=== PATIENT | female | born 1960 | race African-American/Black ===

== ENCOUNTER 2016-08-31 22:40 | Observation (INO) | payer SELFPAY ==
[~2016-08-31 22:40] MED LIST: GLUCTES27 XX; GUAI600 PO; LISI-586 PO; METF850 PO; METO25 PO; ROBA500T PO
[2016-08-31 22:47] VITALS: BP 209/93; PULSE 91; RESP 18; TEMP 98; O2SAT 96
[2016-08-31 23:00] VITALS: PULSE 88; RESP 16; O2SAT 98
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
[2016-08-31 23:31] LABS: BASOPHIL # 0.1 TH/MM3 (0-0.2); BASOPHIL % 0.8 % (0.0-2.0); EOSINOPHIL % 0.5 % (0.0-4.0); HEMATOCRIT 41.8 % (35.0-46.0); HEMO FLAGS DIFF FINAL; LYMPHOCYTE # 2.5 TH/MM3 (1.0-4.8); MEAN CELL VOLUME 78.6 FL (80.0-100.0); MEAN CORPUSCULAR HEMOGLOBIN 26.2 PG (27.0-34.0); MEAN CORPUSCULAR HGB CONC 33.4 % (32.0-36.0); MONO % 8.4 % (0.0-8.0); NEUT % 55.3 % (16.0-70.0); PLATELET COUNT 273 TH/MM3 (150-450); RED BLOOD COUNT 5.32 MIL/MM3 (4.00-5.30); RED CELL DISTRIBUTION WIDTH 15.4 % (11.6-17.2); WHITE BLOOD COUNT 7.2 TH/MM3 (4.0-11.0)
[2016-08-31 23:34] LABS: BACTERIA, URINE RARE /hpf; BLOOD, URINE NEG (NEG); COMMENT (UR) CULTURE INDICATED; CULTURE IF INDICATED CULTURE INDICATED; GLUCOSE,URINE NEG (NEG); KETONE, URINE NEG (NEG); MUCUS URINE FEW /lpf (OCC); NITRITE,URINE NEG (NEG); PH, URINE 5.5 (5.0-8.5); RENAL EPITHELIAL CELLS <1 /hpf; SQUAMOUS EPITHELIAL CELL URINE 1 /hpf (0-5); URINE COLOR YELLOW (YELLW/STRAW)
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
[2016-08-31] MEDS ORDERED: SODIUM CHLOR 0.9% 1000 ML INJ 1,000 ML IV ONE (23:45)
[2016-08-31] MEDS ORDERED: ONDANSETRON HCL 4 MG/2 ML VIAL IV ONE (23:45)
[2016-08-31] MEDS ORDERED: MUPIROCIN 2% OINT 22 GM TUBE TOPICAL ONE (23:45)
[2016-08-31] MEDS ORDERED: MORPHINE SULFATE 4 MG/ML INJ IV PUSH ONE (23:45)
[2016-08-31 23:47] LABS: PROTHROMBIN TIME - PATIENT 11.2 SEC (9.8-11.6)
[2016-08-31 23:59] LABS: ALT (GPT) 16 U/L (10-53); ANION GAP 10 MEQ/L (5-15); AST (GOT) 14 U/L (15-37); BICARBONATE 25.3 MEQ/L (21.0-32.0); BLOOD UREA NITROGEN 14 MG/DL (7-18); CHLORIDE 108 MEQ/L (98-107); GLOMERULAR FILTRATION RATE 86 ML/MIN (>89); POTASSIUM 3.4 MEQ/L (3.5-5.1); SODIUM (NA) 143 MEQ/L (136-145)
[2016-09-01] VITALS (9 sets, daily range): BP systolic 150–197; BP diastolic 70–86; PULSE 61–84; RESP 16–20; TEMP 97.6–98.3; O2SAT 95–100
[2016-09-01 00:03] LABS: ALKALINE PHOSPHATASE 111 U/L (45-117); TOTAL BILIRUBIN ADULT 0.2 MG/DL (0.2-1.0)
[2016-09-01 00:05] LABS: CREATINE KINASE 100 U/L (26-192)
[2016-09-01] MEDS ORDERED: AZITHROMYCIN INJ 500 MG in SODIUM CHLOR 0.9% 250 ML INJ 250 ML IV ONE (01:15)
[2016-09-01] MEDS ORDERED: cefTRIAXone INJ 1,000 MG in SODIUM CHLORIDE 0.9% INJ 100 ML IV ONE (01:15)
[2016-09-01 01:45] LABS: BLOOD GAS BASE EXCESS -0.2 mmol/L (-2-2); BLOOD GAS CARBOXYHEMOGLOBIN 4.4 % (0-4); BLOOD GAS HCO3 24 mmol/L (22-26); BLOOD GAS O2 HGB SATURATION 89 % (90-100); BLOOD GAS PCO2 38 mmHg (38-42); BLOOD GAS PO2 70 mmHG (61-120); BLOOD GAS TOTAL HGB 13.7 G/DL (12.0-16.0); TEMP CORR TO 98.6
[2016-09-01 01:46] LABS: CRITICAL VALUE YES; DRAW SITE LT RADIAL; FIO2 21 %; NUMBER OF ARTERIAL PUNCTURES 2; OXYGEN DEVICE ROOM AIR; STAT YES; ULNAR PULSE PRESENT
[2016-09-01] MEDS ORDERED: SODIUM CHLORIDE 0.9% FLUSH 5 ML FLUSH FLUSH PRN (02:30)
[2016-09-01] MEDS ORDERED: RESP: ALBUTEROL 2.5 MG/IPRATROPIUM 0.5 MG NEB (PRN) NEB (02:30)
[2016-09-01] MEDS ORDERED: NALOXONE HCL 0.4 MG/ML AMP IV PRN (02:30)
[2016-09-01] MEDS ORDERED: DEXTROSE 50% IN WATER 50 ML VIAL(D50) IV PUSH PRN (02:30)
[2016-09-01] MEDS ORDERED: GLUCAGON 1 MG/ML VIAL OTHER PRN (02:30)
[2016-09-01] MEDS ORDERED: METF850T PO (04:45)
[2016-09-01] MEDS ORDERED: CYCL7.5T33 PO (04:45)
[2016-09-01] MEDS ORDERED: METO25TA3 PO (04:45)
[2016-09-01] MEDS: LEVOFLOXACIN 750 MG PREMIX INJ 150 ML IV SCH (05:03)
[2016-09-01] MEDS ORDERED: INSULIN ASPART SUPPLEMENTAL SCALE SQ SCH (07:00)
[2016-09-01] MEDS ORDERED: ACETAMINOPHEN/HYDROcodone 325 MG/7.5 MG TAB PO PRN (08:00)
[2016-09-01] MEDS ORDERED: BISACODYL 10 MG SUPP PR PRN (08:00)
[2016-09-01] MEDS ORDERED: cloNIDine HCL 0.1 MG TAB PO PRN (08:00)
[2016-09-01] MEDS ORDERED: MORPHINE SULFATE 4 MG/ML INJ IV PRN (08:00)
[2016-09-01] MEDS: RESP: ALBUTEROL 2.5 MG/IPRATROPIUM 0.5 MG NEB (SCH) NEB ×4 (08:00→20:18)
[2016-09-01] MEDS ORDERED: ONDANSETRON HCL 4 MG/2 ML VIAL IVP PRN (08:00)
[2016-09-01] MEDS ORDERED: RESP: ALBUTEROL 0.63 MG/3 ML NEB (PRN) NEB (08:00)
[2016-09-01] MEDS ORDERED: SENNOSIDES 8.6 MG TAB PO PRN (08:00)
[2016-09-01] MEDS ORDERED: ACETAMINOPHEN/HYDROcodone 325 MG/5 MG TAB PO PRN (08:00)
[2016-09-01] MEDS ORDERED: ENALAPRILAT 1.25 MG/ML VIAL IV PRN (08:00)
[2016-09-01] MEDS ORDERED: ACETAMINOPHEN 325 MG TAB PO PRN ×2 (08:00)
[2016-09-01] MEDS ORDERED: MAGNESIUM HYDROXIDE SUSP 30 ML CUP PO PRN (08:00)
[2016-09-01] MEDS: METOPROLOL TARTRATE 25 MG TAB PO SCH ×2 (08:36→22:52)
[2016-09-01] MEDS: SODIUM CHLORIDE 0.9% FLUSH 5 ML FLUSH FLUSH SCH ×2 (08:36→22:52)
[2016-09-01] MEDS ORDERED: POTASSIUM CHLORIDE 20 MEQ CONTROLLED RELEASE TAB PO ONE (08:45)
[2016-09-01] MEDS ORDERED: PILL SPLITTER OTHER PRN (09:00)
[2016-09-01] MEDS ORDERED: SILVER SULFADIAZINE 1% CR 400 GM JAR TOPICAL SCH (09:00)
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
[2016-09-01] MEDS ORDERED: HYDR-3580 PO (10:18)
[2016-09-01] MEDS: CYCLOBENZAPRINE HCL 10 MG TAB PO SCH ×3 (10:26→18:24)
[2016-09-01] MEDS: DOCUSATE SODIUM 100 MG CAP PO SCH ×2 (10:26→21:00)
[2016-09-01] MEDS: metFORMIN HCL 850 MG TAB PO SCH ×2 (10:27→18:24)
[2016-09-01] MEDS: INSULIN ASPART SUPPLEMENTAL SCALE SQ SCH ×3 (11:00→21:00)
[2016-09-01] MEDS: NEOMYCIN/POLYMYXIN/BACITRACIN OINT 15 GM TUBE TOPICAL SCH ×2 (11:00→22:54)
[2016-09-01] MEDS ORDERED: TETANUS/DIPHTHERIA TOXOID ADULT 0.5 ML VIAL IM ONE (12:30)
[2016-09-02] MEDS: LEVOFLOXACIN 750 MG PREMIX INJ 150 ML IV SCH (03:26)
[2016-09-02 04:09] VITALS: BP_SYST 170; BP_SYST 177; BP_DIAS 76; BP_DIAS 83; PULSE 63; RESP 20; TEMP 97.6; O2SAT 98
[2016-09-02 05:35] LABS: AUTOMATED NEUTROPHIL # 2.4 TH/MM3 (1.8-7.7); BASOPHIL % 0.4 % (0.0-2.0); EOSINOPHIL % 0.9 % (0.0-4.0); HEMATOCRIT 40.3 % (35.0-46.0); HEMO FLAGS DIFF FINAL; LYMPH % 45.9 % (9.0-44.0); LYMPHOCYTE # 2.5 TH/MM3 (1.0-4.8); MEAN CELL VOLUME 78.3 FL (80.0-100.0); MEAN CORPUSCULAR HGB CONC 33.2 % (32.0-36.0); MONO % 9.5 % (0.0-8.0); NEUT % 43.3 % (16.0-70.0); PLATELET COUNT 249 TH/MM3 (150-450); RED BLOOD COUNT 5.15 MIL/MM3 (4.00-5.30); RED CELL DISTRIBUTION WIDTH 15.5 % (11.6-17.2); WHITE BLOOD COUNT 5.5 TH/MM3 (4.0-11.0)
[2016-09-02 05:51] LABS: BICARBONATE 25.2 MEQ/L (21.0-32.0); POTASSIUM 3.4 MEQ/L (3.5-5.1)
[2016-09-02] MEDS: INSULIN ASPART SUPPLEMENTAL SCALE SQ SCH ×4 (07:00→21:00)
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
[2016-09-02] MEDS: RESP: ALBUTEROL 2.5 MG/IPRATROPIUM 0.5 MG NEB (SCH) NEB ×4 (08:18→20:33)
[2016-09-02 08:19] VITALS: O2SAT 98
[2016-09-02 08:32] VITALS: BP 150/70; PULSE 70; RESP 18; TEMP 97.8; O2SAT 95
[2016-09-02] MEDS ORDERED: LISINOPRIL 5 MG TAB PO SCH (09:00)
[2016-09-02] MEDS: DOCUSATE SODIUM 100 MG CAP PO SCH ×2 (09:00→21:08)
[2016-09-02] MEDS: SODIUM CHLORIDE 0.9% FLUSH 5 ML FLUSH FLUSH SCH ×2 (09:08→21:08)
[2016-09-02] MEDS: CYCLOBENZAPRINE HCL 10 MG TAB PO SCH ×3 (09:08→17:41)
[2016-09-02] MEDS: METOPROLOL TARTRATE 25 MG TAB PO SCH ×2 (09:08→21:08)
[2016-09-02] MEDS: metFORMIN HCL 850 MG TAB PO SCH ×2 (09:08→17:41)
[2016-09-02] MEDS: amLODIPine BESYLATE 5 MG TAB PO SCH (09:08)
[2016-09-02] MEDS ORDERED: POTASSIUM CHLORIDE 10 MEQ CONTROLLED RELEASE TAB PO ONE (09:15)
[2016-09-02] MEDS ORDERED: AMLO5 PO (10:16)
[2016-09-02] MEDS ORDERED: LEVA750T PO (10:16)
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
[2016-09-02] MEDS: NEOMYCIN/POLYMYXIN/BACITRACIN OINT 15 GM TUBE TOPICAL SCH ×2 (11:00→23:00)
[2016-09-02 13:42] VITALS: BP 149/66; PULSE 66; RESP 18; O2SAT 95
[2016-09-02 17:16] VITALS: BP 148/60; PULSE 72; RESP 18; O2SAT 95
[2016-09-02 20:28] VITALS: BP 156/68; PULSE 72; RESP 18; TEMP 97.8; O2SAT 98
[2016-09-03 00:43] VITALS: BP 157/70; PULSE 68; RESP 18; TEMP 98.4; O2SAT 98
[2016-09-03] MEDS: LEVOFLOXACIN 750 MG PREMIX INJ 150 ML IV SCH (03:02)
[2016-09-03] MEDS: INSULIN ASPART SUPPLEMENTAL SCALE SQ SCH ×2 (07:00→11:00)
[2016-09-03 07:19] VITALS: O2SAT 97
[2016-09-03] MEDS: RESP: ALBUTEROL 2.5 MG/IPRATROPIUM 0.5 MG NEB (SCH) NEB (07:19)
[2016-09-03] MEDS: metFORMIN HCL 850 MG TAB PO SCH (08:52)
[2016-09-03] MEDS: SODIUM CHLORIDE 0.9% FLUSH 5 ML FLUSH FLUSH SCH (08:52)
[2016-09-03] MEDS: CYCLOBENZAPRINE HCL 10 MG TAB PO SCH (08:52)
[2016-09-03] MEDS: METOPROLOL TARTRATE 25 MG TAB PO SCH (08:52)
[2016-09-03] MEDS: amLODIPine BESYLATE 5 MG TAB PO SCH (08:52)
[2016-09-03] MEDS: DOCUSATE SODIUM 100 MG CAP PO SCH (08:52)
[2016-09-03 08:56] VITALS: BP 186/77; PULSE 72; RESP 20; TEMP 98.3; O2SAT 96
[2016-09-03 10:40] VITALS: BP 140/62; PULSE 71; RESP 20; TEMP 97.2; O2SAT 96
[2016-09-03] MEDS: NEOMYCIN/POLYMYXIN/BACITRACIN OINT 15 GM TUBE TOPICAL SCH (10:45)
[2016-09-03 11:26] VITALS: BP 167/78; PULSE 69; RESP 18; O2SAT 95
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
[2016-09-03] MEDS ORDERED: NEOS.9T TOPICAL (11:31)
[2016-09-03] MEDS ORDERED: AMLO10 PO (11:31)
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
[2016-09-03 12:18] VITALS: BP 167/78
== END 2016-09-03 12:58 | disposition home or self-care (01) ==
LOC: NEPC 22:40 → NEDA 09-01 01:58 → NEDH 09-01 06:30 → NEPHCDU 09-01 15:31
PROVIDERS: ADMIT Internal Medicine; ATTEND Internal Medicine
DX: T23.242A Burn of second degree of multiple left fingers (nail), including thumb, initial encounter (principal); J18.9 Pneumonia, unspecified organism; I10 Essential (primary) hypertension; N39.0 Urinary tract infection, site not specified; I16.0 Hypertensive urgency; E11.9 Type 2 diabetes mellitus without complications; Z79.84 Long term (current) use of oral hypoglycemic drugs; Z88.8 Allergy status to other drugs, medicaments and biological substances; X10.2XXA Contact with fats and cooking oils, initial encounter
CPT/HCPCS: 36600; 71010; 80048; 80053; 81001; 82550; 82805; 82948; 83735; 83880; 84484; 85025; 85610; 85730; 86403; 87040; 87077; 87086; 87186; 87205; 90714; 94640; 96361; 96365; 96375; 99285; G0378; J0456; J0696; J1956; J2270; J2405; J7030; J7050

== ENCOUNTER 2017-11-09 17:36 | Emergency (ER) | payer MEDICAID ==
[~2017-11-09] VITALS: Ht 170.2 cm; Wt 90.9 kg
[~2017-11-09 17:36] MED LIST changes: +AMLO10 PO; +AMLO5 PO; +CYCL7.5T33 PO; -GLUCTES27 XX; -GUAI600 PO; +HYDR-3580 PO; +LEVA750T PO; -LISI-586 PO; -METF850 PO; +METF850T PO; -METO25 PO; +METO25TA3 PO; +NEOS.9T TOPICAL; -ROBA500T PO
[2017-11-09 17:38] VITALS: BP 177/86; PULSE 101; RESP 18; TEMP 99.1; O2SAT 99
[2017-11-09] MEDS ORDERED: SODIUM CHLORIDE 0.9% FLUSH 10 ML FLUSH IVF PRN (18:00)
[2017-11-09] MEDS ORDERED: METH500T3 PO (18:05)
--- NOTE | 2017-11-09 18:36 | PD ---
HPI Chief Complaint: GI Complaint Time Seen by Provider: 17:48 Travel History International Travel<30 days: No Contact w/Intl Traveler<30days: No Traveled to known affect area: No History of Present Illness HPI 57-year-old female with PMH of HTN, DM, chronic pain presents to the ED for evaluation 24 hour history of palpitations, pain in the left arm radiating to the chest, nausea. Patient denies headache, dizziness, chest pain, shortness of breath, abdominal pain, vomiting. She does endorse one episode of nonbloody loose stools. Patient states that the symptoms onset at breakfast yesterday after taking amlodipine. She states that she was prescribed the medicine 2 days ago. She states that she had a dose in the office which created the same symptoms in her but they resolved over the course of the day. Patient is a current smoker. She states that she does not take any antihypertensive medications today. PFSH Past Medical History Arthritis: Yes Anxiety: No Depression: No Heart Rhythm Problems: No Cancer: No Cardiac Catheterization: No Cardiovascular Problems: No High Cholesterol: No Congestive Heart Failure: No Diabetes: Yes Patient Takes Glucophage: Yes Endocrine: No Genitourinary: No Headaches: Yes Hypertension: Yes Immune Disorder: No Musculoskeletal: No Neurologic: No Psychiatric: No Reproductive: No Respiratory: No Myocardial Infarction: No Sickle Cell Disease: No ?: Not Menopausal: Yes : 3 Para: 3 Past Surgical History Abdominal Surgery: Yes (hysterectomy) AICD: No Arteriovenous Shunt: No Cardiac Surgery: No Coronary Artery Bypass Graft: No Ear Surgery: No Endocrine Surgery: No Genitourinary Surgery: No Gynecologic Surgery: Yes Hysterectomy: Yes (FULL) Insulin Pump: No Joint Replacement: No Oral Surgery: No Pacemaker: No Thoracic Surgery: No Other Surgery: Yes Social History Alcohol Use: No Tobacco Use: Yes (1 PACK/ 3 DAYS) Substance Use: No Allergies-Medications (Allergen,Severity, Reaction): Coded Allergies: lisinopril (Unverified Allergy, Severe, angioedema, 11/09/17) sodium hypochlorite solution (Unverified Allergy, Intermediate, Rash, 11/09) sulfamethoxazole (Unverified Allergy, Unknown, Swelling, 11/09/17) tongue swelling trimethoprim (Unverified Allergy, Unknown, Swelling, 11/09/17) tongue swelling Reported Meds & Prescriptions Reported Meds & Active Scripts Active Norvasc (Amlodipine Besylate) 5 Mg Tab 5 Mg PO DAILY Reported Methocarbamol 500 Mg Tab 1,000 Mg PO QID Metformin (Metformin HCl) 850 Mg Tab 850 Mg PO BIDPC With meals Review of Systems Except as stated in HPI: all other systems reviewed are Neg Physical Exam Narrative GENERAL: Well-nourished, well-developed -[place] female no acute distress. SKIN: Focused skin assessment warm/dry. HEAD: Normocephalic. EYES: No scleral icterus. No injection or drainage. NECK: Supple, trachea midline. No JVD or lymphadenopathy. CARDIOVASCULAR: Regular rate and rhythm without murmurs, gallops, or rubs. RESPIRATORY: Breath sounds clear and equal bilaterally. No accessory muscle use. GASTROINTESTINAL: Abdomen soft, non-tender, nondistended. MUSCULOSKELETAL: No cyanosis, or edema. BACK: Nontender without obvious deformity. No CVA tenderness. Data Data Last Documented VS Vital Signs Date Time Temp Pulse Resp B/P (MAP) Pulse Ox O2 Delivery O2 Flow Rate FiO2 11/09/17 17:38 99.1 101 18 177/86 (116) 99 Orders Orders Electrocardiogram (11/09/17 17:55) Ckmb (Isoenzyme) Profile (11/09/17 17:55) Complete Blood Count With Diff (11/09/17 17:55) Comprehensive Metabolic Panel (11/09/17 17:55) Magnesium (Mg) (11/09/17 17:55) Prothrombin Time / Inr (Pt) (11/09/17 17:55) Act Partial Throm Time (Ptt) (11/09/17 17:55) Troponin I (11/09/17 17:55) Ecg Monitoring (11/09/17 17:55) Bilateral Bp Monitoring (11/09/17 17:55) Iv Access Insert/Monitor (11/09/17 17:55) Oximetry (11/09/17 17:55) Sodium Chloride 0.9% Flush (Ns Flush) (11/09/17 18:00) Chest, Pa & Lat (11/09/17 17:55) Sodium Chlor 0.9% 1000 Ml Inj (Ns 1000 M (11/09/17 19:30) Potassium Chloride (Kcl) (11/09/17 19:30) Ed Discharge Order (11/09/17 19:38) Labs Laboratory Tests Test 11/09/17 18:05 White Blood Count 7.9 TH/MM3 Red Blood Count 6.10 MIL/MM3 Hemoglobin 15.6 GM/DL Hematocrit 48.2 % Mean Corpuscular Volume 78.9 FL Mean Corpuscular Hemoglobin 25.6 PG Mean Corpuscular Hemoglobin Concent 32.4 % Red Cell Distribution Width 15.9 % Platelet Count 293 TH/MM3 Mean Platelet Volume 8.1 FL Neutrophils (%) (Auto) 53.6 % Lymphocytes (%) (Auto) 38.3 % Monocytes (%) (Auto) 7.2 % Eosinophils (%) (Auto) 0.4 % Basophils (%) (Auto) 0.5 % Neutrophils # (Auto) 4.2 TH/MM3 Lymphocytes # (Auto) 3.0 TH/MM3 Monocytes # (Auto) 0.6 TH/MM3 Eosinophils # (Auto) 0.0 TH/MM3 Basophils # (Auto) 0.0 TH/MM3 CBC Comment AUTO DIFF Differential Comment AUTO DIFF CONFIRMED Prothrombin Time 10.3 SEC Prothromb Time International Ratio 1.0 RATIO Activated Partial Thromboplast Time 22.0 SEC Blood Urea Nitrogen 13 MG/DL Creatinine 0.90 MG/DL Random Glucose 84 MG/DL Total Protein 8.7 GM/DL Albumin 3.7 GM/DL Calcium Level 9.3 MG/DL Magnesium Level 2.1 MG/DL Alkaline Phosphatase 133 U/L Aspartate Amino Transf (AST/SGOT) 21 U/L Alanine Aminotransferase (ALT/SGPT) 24 U/L Total Bilirubin 0.3 MG/DL Sodium Level 143 MEQ/L Potassium Level 3.2 MEQ/L Chloride Level 106 MEQ/L Carbon Dioxide Level 29.5 MEQ/L Anion Gap 8 MEQ/L Estimat Glomerular Filtration Rate 78 ML/MIN Total Creatine Kinase 89 U/L Troponin I LESS THAN 0.02 NG/ML MDM Medical Decision Making Medical Screen Exam Complete: Yes Emergency Medical Condition: Yes Differential Diagnosis Medication side effect versus dysrhythmia versus metabolic derangement versus rhabdomyolysis versus dehydration versus other Narrative Course 57-year-old female with PMH of HTN, DM, chronic pain presents to the ED for evaluation 24 hour history of palpitations, pain in the left arm radiating to the chest, nausea. Symptoms onset at breakfast yesterday after taking amlodipine. She states that she was prescribed the medicine 2 days ago. She states that she had a dose in the office which created the same symptoms in her but they resolved over the course of the day. Patient is a current smoker. She states that she does not take any antihypertensive medications today. Temp 99.1. Pulse 101. BP 177/86 on presentation. Physical exam is unremarkable. EKG rate 79, sinus rhythm. There are interval 182, QRS 86, QTc 4 2 ms. Normal axis. No acute ST changes. Unchanged from previous 01/29/15. Reviewed by Dr. Pantoja. Lab work ordered and pending. Patient signed out to CORINNA Torres at end of shift. Please see her note for disposition. Yahaira Loyola November 09, 2017 18:36
[2017-11-09 18:46] LABS: AUTOMATED NEUTROPHIL # 4.2 TH/MM3 (1.8-7.7); BASOPHIL % 0.5 % (0.0-2.0); EOSINOPHIL % 0.4 % (0.0-4.0); HEMATOCRIT 48.2 % (35.0-46.0); HEMOGLOBIN 15.6 GM/DL (11.6-15.3); LYMPH % 38.3 % (9.0-44.0); MEAN CELL VOLUME 78.9 FL (80.0-100.0); MEAN CORPUSCULAR HEMOGLOBIN 25.6 PG (27.0-34.0); MEAN CORPUSCULAR HGB CONC 32.4 % (32.0-36.0); MEAN PLATELET VOLUME 8.1 FL (7.0-11.0); MONO % 7.2 % (0.0-8.0); MONOCYTE # 0.6 TH/MM3 (0-0.9); NEUT % 53.6 % (16.0-70.0); PLATELET COUNT 293 TH/MM3 (150-450); RED CELL DISTRIBUTION WIDTH 15.9 % (11.6-17.2); WHITE BLOOD COUNT 7.9 TH/MM3 (4.0-11.0)
[2017-11-09 18:52] LABS: PROTHROMBIN TIME - PATIENT 10.3 SEC (9.8-11.6)
--- NOTE | 2017-11-09 18:57 | RADRPT ---
EXAM DATE/TIME: 11/09/2017 18:43 [place] COMPARISON: No previous studies available for comparison. INDICATIONS : Chest palpitations. MEDICAL HISTORY : Hypertension. Arthritis. Diabetes. SURGICAL HISTORY : Hysterectomy. ENCOUNTER: Initial ACUITY: 2 days PAIN SCORE: 3/10 LOCATION: Bilateral chest FINDINGS: The heart size is normal. There is increased density at the left base. The right lung is clear. No ef fusion is seen. CONCLUSION: Left lower lobe atelectasis or consolidation. aPblo Castro MD on November 09, 2017 at 18:54 Board Certified Radiologist. This report was verified electronically.
[2017-11-09 18:58] LABS: ALBUMIN 3.7 GM/DL (3.4-5.0); ALT (GPT) 24 U/L (10-53); AST (GOT) 21 U/L (15-37); BICARBONATE 29.5 MEQ/L (21.0-32.0); BLOOD UREA NITROGEN 13 MG/DL (7-18); CALCIUM 9.3 MG/DL (8.5-10.1); CHLORIDE 106 MEQ/L (98-107); GLOMERULAR FILTRATION RATE 78 ML/MIN (>89); GLUCOSE,RANDOM 84 MG/DL (74-106); MAGNESIUM 2.1 MG/DL (1.5-2.5); SODIUM (NA) 143 MEQ/L (136-145)
[2017-11-09 19:01] LABS: ALKALINE PHOSPHATASE 133 U/L (45-117); TOTAL BILIRUBIN ADULT 0.3 MG/DL (0.2-1.0); TOTAL PROTEIN 8.7 GM/DL (6.4-8.2); TROPONIN I LESS THAN 0.02 NG/ML (0.02-0.05)
[2017-11-09] MEDS ORDERED: SODIUM CHLOR 0.9% 1000 ML INJ 1,000 ML IV ONE (19:30)
[2017-11-09] MEDS ORDERED: POTASSIUM CHLORIDE 10 MEQ CONTROLLED RELEASE TAB PO ONE (19:30)
--- NOTE | 2017-11-09 19:38 | PD ---
Physical Exam Date Seen by Provider: November 09, 2017 Time Seen by Provider: 19:34 Narrative For full history and physical examination please see previous providers note. Data Data Last Documented VS Vital Signs Date Time Temp Pulse Resp B/P (MAP) Pulse Ox O2 Delivery O2 Flow Rate FiO2 11/09/17 17:38 99.1 101 18 177/86 (116) 99 Orders Orders Electrocardiogram (11/09/17 17:55) Ckmb (Isoenzyme) Profile (11/09/17 17:55) Complete Blood Count With Diff (11/09/17 17:55) Comprehensive Metabolic Panel (11/09/17 17:55) Magnesium (Mg) (11/09/17 17:55) Prothrombin Time / Inr (Pt) (11/09/17 17:55) Act Partial Throm Time (Ptt) (11/09/17 17:55) Troponin I (11/09/17 17:55) Ecg Monitoring (11/09/17 17:55) Bilateral Bp Monitoring (11/09/17 17:55) Iv Access Insert/Monitor (11/09/17 17:55) Oximetry (11/09/17 17:55) Sodium Chloride 0.9% Flush (Ns Flush) (11/09/17 18:00) Chest, Pa & Lat (11/09/17 17:55) Sodium Chlor 0.9% 1000 Ml Inj (Ns 1000 M (11/09/17 19:30) Potassium Chloride (Kcl) (11/09/17 19:30) Labs Laboratory Tests Test 11/09/17 18:05 White Blood Count 7.9 TH/MM3 Red Blood Count 6.10 MIL/MM3 Hemoglobin 15.6 GM/DL Hematocrit 48.2 % Mean Corpuscular Volume 78.9 FL Mean Corpuscular Hemoglobin 25.6 PG Mean Corpuscular Hemoglobin Concent 32.4 % Red Cell Distribution Width 15.9 % Platelet Count 293 TH/MM3 Mean Platelet Volume 8.1 FL Neutrophils (%) (Auto) 53.6 % Lymphocytes (%) (Auto) 38.3 % Monocytes (%) (Auto) 7.2 % Eosinophils (%) (Auto) 0.4 % Basophils (%) (Auto) 0.5 % Neutrophils # (Auto) 4.2 TH/MM3 Lymphocytes # (Auto) 3.0 TH/MM3 Monocytes # (Auto) 0.6 TH/MM3 Eosinophils # (Auto) 0.0 TH/MM3 Basophils # (Auto) 0.0 TH/MM3 CBC Comment AUTO DIFF Prothrombin Time 10.3 SEC Prothromb Time International Ratio 1.0 RATIO Activated Partial Thromboplast Time 22.0 SEC Blood Urea Nitrogen 13 MG/DL Creatinine 0.90 MG/DL Random Glucose 84 MG/DL Total Protein 8.7 GM/DL Albumin 3.7 GM/DL Calcium Level 9.3 MG/DL Magnesium Level 2.1 MG/DL Alkaline Phosphatase 133 U/L Aspartate Amino Transf (AST/SGOT) 21 U/L Alanine Aminotransferase (ALT/SGPT) 24 U/L Total Bilirubin 0.3 MG/DL Sodium Level 143 MEQ/L Potassium Level 3.2 MEQ/L Chloride Level 106 MEQ/L Carbon Dioxide Level 29.5 MEQ/L Anion Gap 8 MEQ/L Estimat Glomerular Filtration Rate 78 ML/MIN Total Creatine Kinase 89 U/L Troponin I LESS THAN 0.02 NG/ML MDM Medical Record Reviewed: Yes Supervised Visit with KRYSTLE: Yes Interpretation(s) Last Impressions Chest X-Ray 11/09/17 4367 Signed Impressions: Service Date/Time: Tuesday, November 09, 2017 18:43 - CONCLUSION: Left lower lobe atelectasis or consolidation. Pablo Castro MD Laboratory Tests Test 11/09/17 18:05 White Blood Count 7.9 TH/MM3 Red Blood Count 6.10 MIL/MM3 Hemoglobin 15.6 GM/DL Hematocrit 48.2 % Mean Corpuscular Volume 78.9 FL Mean Corpuscular Hemoglobin 25.6 PG Mean Corpuscular Hemoglobin Concent 32.4 % Red Cell Distribution Width 15.9 % Platelet Count 293 TH/MM3 Mean Platelet Volume 8.1 FL Neutrophils (%) (Auto) 53.6 % Lymphocytes (%) (Auto) 38.3 % Monocytes (%) (Auto) 7.2 % Eosinophils (%) (Auto) 0.4 % Basophils (%) (Auto) 0.5 % Neutrophils # (Auto) 4.2 TH/MM3 Lymphocytes # (Auto) 3.0 TH/MM3 Monocytes # (Auto) 0.6 TH/MM3 Eosinophils # (Auto) 0.0 TH/MM3 Basophils # (Auto) 0.0 TH/MM3 CBC Comment AUTO DIFF Prothrombin Time 10.3 SEC Prothromb Time International Ratio 1.0 RATIO Activated Partial Thromboplast Time 22.0 SEC Blood Urea Nitrogen 13 MG/DL Creatinine 0.90 MG/DL Random Glucose 84 MG/DL Total Protein 8.7 GM/DL Albumin 3.7 GM/DL Calcium Level 9.3 MG/DL Magnesium Level 2.1 MG/DL Alkaline Phosphatase 133 U/L Aspartate Amino Transf (AST/SGOT) 21 U/L Alanine Aminotransferase (ALT/SGPT) 24 U/L Total Bilirubin 0.3 MG/DL Sodium Level 143 MEQ/L Potassium Level 3.2 MEQ/L Chloride Level 106 MEQ/L Carbon Dioxide Level 29.5 MEQ/L Anion Gap 8 MEQ/L Estimat Glomerular Filtration Rate 78 ML/MIN Total Creatine Kinase 89 U/L Troponin I LESS THAN 0.02 NG/ML Vital Signs Date Time Temp Pulse Resp B/P (MAP) Pulse Ox O2 Delivery O2 Flow Rate FiO2 11/09/17 17:38 99.1 101 18 177/86 (116) 99 Narrative Course I assumed care of this patient change of shift. At that time labs were pending. Chest x-ray shows a left lower lobe infiltrate versus consolidation. Patient's lungs are clear to auscultation bilaterally. She is a smoker and denies any respiratory symptoms otherwise. Likely atelectasis. CBC with elevated hemoglobin and hematocrit of 15.6/48.2, this is likely secondary to patient's tobacco use. No leukocytosis noted. Cardiac enzymes are negative 1 set, potassium is 3.2, oral replacement ordered. Discussed findings with my attending physician. Discussed plan of care with my attending physician. Patient was reassessed, she reports feeling better. Patient was encouraged to trial taking amlodipine at night to lessen side effects. She was advised to follow-up with her primary doctor in 1-2 days. Additionally she was strongly encouraged to return to emergency department for any new or worsening symptoms. Diagnosis Primary Impression: Lung infiltrate Additional Impression: Hypertension Qualified Codes: I10 - Essential (primary) hypertension Referrals: Primary Care Physician 1 day Patient Instructions: Amlodipine (By mouth), General Instructions, Hypertension (ED) Additional Instruction: Follow-up with your primary doctor in 1 to 2 days Return to emergency department for any new or worsening symptoms Continue home medications as previously prescribed Med/Other Pt SpecificInfo: No Change to Meds Disposition: DISCHARGE HOME Condition: Stable Lorena Moya November 09, 2017 19:38
--- NOTE | 2017-11-11 12:01 | EKG ---
Date Performed: 11/09/2017 Time Performed: 18:12:51 PTAGE: 57 years EKG: Sinus rhythm MODERATE T-WAVE ABNORMALITY, CONSIDER LATERAL ISCHEMIA ABNORMAL ECG PREVIOUS TRACING : 02/03/2015 14.07 DOCTOR: Cj Matta Interpretating Date/Time 11/11/2017 11:52:56
== END 2017-11-09 20:00 | disposition home or self-care (01) ==
LOC: NEPD 17:36
DX: R91.8 Other nonspecific abnormal finding of lung field (principal); I10 Essential (primary) hypertension; R00.2 Palpitations; M79.602 Pain in left arm; R07.9 Chest pain, unspecified; R11.0 Nausea; R94.31 Abnormal electrocardiogram [ECG] [EKG]; E11.9 Type 2 diabetes mellitus without complications; F17.200 Nicotine dependence, unspecified, uncomplicated; Z79.84 Long term (current) use of oral hypoglycemic drugs; Z87.39 Personal history of other diseases of the musculoskeletal system and connective tissue
CPT/HCPCS: 71046; 80053; 82550; 83735; 84484; 85025; 85610; 85730; 93005

== ENCOUNTER 2018-06-29 14:34 | Inpatient (IN) ==
[2018-06-29] MEDS ORDERED: amLODIPine 5 MG Tablet PO ONE (18:02)
--- NOTE | 2018-06-29 18:30 | CT ---
EXAM DATE: 06/29/2018 6:24 PM EST AGE/SEX: 58 years / Female INDICATIONS: Dizziness, Cephalgia. CLINICAL DATA: This is the patient's initial encounter. Patient reports that signs and symptoms have been present for 1 day and indicates a pain score of 10/10. MEDICAL/SURGICAL HISTORY: Diabetes. Hypertension. None. RADIATION DOSE: 35.89 CTDI (mGy) COMPARISON: No prior exams available for comparison. TECHNIQUE: CT of the head without contrast. Using automated exposure control and adjustment of the mA and/or kV according to patient size, radiation dose was kept as low as reasonably achievable to ob tain optimal diagnostic quality images. DICOM format image data is available electronically for revi ew and comparison. FINDINGS: Cerebrum: There is a small focal area of decreased density involving the cortex and subcortical whit e matter of the left parietal lobe near the vertex. The ventricles are normal for age. No evidence o f midline shift, mass lesion, hemorrhage or acute infarction. No extraaxial fluid collections are se en. Posterior Fossa: The cerebellum and brainstem are intact. The 4th ventricle is midline. The cerebe llopontine angle is unremarkable. Extracranial: The visualized portion of the orbits is intact. Skull: The calvaria is intact. No evidence of skull fracture. CONCLUSION: 1. Small area of decreased density involving the left parietal lobe as detailed above. I cannot excl ude a small area of acute infarction. Consider MRI to further assess. . Electronically signed by: Jaya Elizondo MD Board Certified Radiologist 06/29/2018 6:29 PM EST
[2018-06-29 18:47] LABS: Baso # (Auto) 0.1 th/mm3 (0.0-0.2); Baso % (Auto) 1.2 % (0.0-2.0); Eos % (Auto) 0.4 % (0.0-4.0); Hematocrit 44.3 % (35.0-46.0); Hemoglobin 14.5 gm/dL (11.6-15.3); Lymph # (Auto) 2.6 th/mm3 (1.0-4.8); Lymph % (Auto) 39.5 % (9.0-44.0); Mean Corpuscular HGB Conc 32.8 % (32.0-36.0); Mean Corpuscular Hemoglobin 26.6 pg (27.0-34.0); Mean Corpuscular Volume 81.2 fL (80.0-100.0); Mean Platelet Volume 7.6 fL (7.0-11.0); Mono # (Auto) 0.4 th/mm3 (0.0-0.9); Mono % (Auto) 6.8 % (0.0-8.0); Neut # (Auto) 3.4 th/mm3 (1.8-7.7); Neut % (Auto) 52.1 % (16.0-70.0); Platelet Count 288 th/mm3 (150-450); Red Blood Count 5.45 mil/mm3 (4.00-5.30); Red Cell Distribution Width 15.6 % (11.6-17.2); White Blood Count 6.5 th/mm3 (4.0-11.0)
--- NOTE | 2018-06-29 18:49 | XR ---
EXAM DATE: 06/29/2018 6:35 PM EST AGE/SEX: 58 years / Female INDICATIONS: Chest pain CLINICAL DATA: This is the patient's initial encounter. Patient reports that signs and symptoms have been present for 1 day and indicates a pain score of 0/10. MEDICAL/SURGICAL HISTORY: Hypertension. Diabetes mellitus type II. None. COMPARISON: [facility] [place]ST [place] & [place], 11/09/2017. . FINDINGS: A single AP view of the chest demonstrates parenchymal consolidation involving the left lower lobe. R ight lung is clear. A questionable tiny left effusion. Heart is normal in size. Bony structures are u nremarkable. CONCLUSION: Left lower lobe infiltrate with questionable tiny left effusion. Electronically signed by: Jaya Elizondo MD Board Certified Radiologist 06/29/2018 6:48 PM EST
[2018-06-29 18:54] LABS: Activated Partial Thrombo Time 25.2 sec (23.4-31.7); Prothrombin Time 10.6 sec (9.8-11.6)
--- NOTE | 2018-06-29 19:03 | ED ---
HPI General Chief complaint: Hypertension Stated complaint: BP Complaint/DR Sent Time Seen by Provider: 06/29/18 17:38 Source: patient Mode of arrival: ambulatory Limitations: no limitations History of Present Illness HPI narrative: Patient is a 58-year-old female presenting to the emerge department for evaluation of hypertension. Patient reports a history of the same, she is been out of her blood pressure medications for 2 weeks. She went to her pain management doctor and [place] today and her blood pressure was noted to be 190/180. Patient states that she has had a headache for several days and reports visual changes/blurry vision. Patient denies any chest pain, shortness of breath, abdominal pain, fever, chills. She further denies any weakness in her extremities. No gait abnormality. Past medical history is significant for hypertension, type 2 diabetes. Chronic back pain. On arrival patient initially denied any symptoms. Onset (ago): day(s) Radiation: non-radiation Severity: mild and moderate Severity scale (1-10): 3 Quality: aching Pain Consistency: constant Relieving factors: none Exacerbating factors: none Associated symptoms: Reports headaches and other (Visual changes, dizziness) Treatments prior to arrival: Reports other (Patient states that she went to the pharmacy when she returned home from [place] today and was given 1 metoprolol pill by her pharmacist.) Related Data Home Medications Medication Instructions Recorded Confirmed metformin 500 mg PO BID 06/29/18 06/29/18 metoprolol tartrate 25 mg PO BID 06/29/18 06/29/18 Allergies Allergy/AdvReac Type Severity Reaction Status Date / Time lisinopril Allergy Severe angioedema Verified 06/29/18 17:57 sodium hypochlorite solution Allergy Intermediate Rash Verified 06/29/18 17:57 sulfamethoxazole Allergy Unknown Swelling Verified 06/29/18 17:57 trimethoprim Allergy Unknown Swelling Verified 06/29/18 17:57 Review of Systems ROS: all other systems reviewed are negative [facility] Medical History Medical History H/O: hysterectomy (Acute) Chronic pain (Acute) Diabetes (Acute) Hypertension (Acute) Family History Family History Mother Heart attack Father Liver cancer Social History Social History Substance History: No History of Abuse Second Hand Smoke Exposure: Yes Smoking Status: Heavy tobacco smoker Tobacco Type: Cigarettes How Often Do You Have a Drink Containing Alcohol: Never Recent Travel in [facility] within the Last 8 Weeks: No Recent Out of Country Travel within the Last 8 Weeks: No Immunization History Tetanus Immunization: Unsure Exam Narrative Exam Narrative: GENERAL: Overweight, well-developed, alert -Spanish female. Presenting in no acute distress. SKIN: Focused skin assessment warm/dry. HEAD: Atraumatic. Normocephalic. EYES: Pupils equal and round. No scleral icterus. No injection or drainage. ENT: No nasal bleeding or discharge. Mucous membranes pink and moist. NECK: Trachea midline. No JVD. CARDIOVASCULAR: Regular rate and rhythm. No murmur appreciated. RESPIRATORY: No accessory muscle use. Clear to auscultation. Breath sounds equal bilaterally. GASTROINTESTINAL: Abdomen soft, non-tender, nondistended. Hepatic and splenic margins not palpable. MUSCULOSKELETAL: No obvious deformities. No clubbing. No cyanosis. No edema. NEUROLOGICAL: Awake and alert. No obvious cranial nerve deficits. Motor grossly within normal limits. Normal speech. PSYCHIATRIC: Appropriate mood and affect; insight and judgment normal. Course Initial Documented Vital Signs Temperature 98.5 F 06/29/18 14:57 Pulse Rate 77 06/29/18 14:57 Respiratory Rate 17 06/29/18 14:57 Blood Pressure 180/77 H 06/29/18 14:57 Pulse Oximetry 99 06/29/18 14:57 Last Documented Vital Signs Temperature 97.8 F 06/30/18 12:05 Pulse Rate 69 06/30/18 12:05 Respiratory Rate 20 06/30/18 12:05 Blood Pressure 160/69 H 06/30/18 12:05 Pulse Oximetry 92 L 06/30/18 12:05 NIH Stroke Scale NIH Stroke Scale Level of Consciousness: 0-Alert Orientation Questions: 0-Answers both correct Responds to Commands: 0-Both tasks correct Gaze Eye Movement: 0-Horizontal movement WNL Visual Freitas: 0-No visual field defect Facial Movement: 0-Normal Motor Functions Arm LEFT: 0-No drift Motor Functions Arm RIGHT: 0-No drift Motor Functions Leg LEFT: 0-No drift Motor Functions Leg RIGHT: 0-No drift Limb Ataxia: 0-No ataxia Sensory Loss: 0-No sensory loss Best Language: 0-Normal Articulation: 0-Normal Extinction or Inattention Sensory: 0-Absent Total: 0 Medical Decision Making MDM Narrative Medical decision making narrative: Patient is a 58-year-old female presenting for evaluation of hypertension. On arrival patient reported symptoms, visual changes headache. Patient has no focal deficits on exam. Gait is stable. CT scan of the brain was ordered and pending, labs ordered and pending. Initial EKG shows sinus rhythm with a rate of 68, this was reviewed by my attending physician. CT scan of the brain shows small area of decreased density in the left parietal lobe. Consider MRI per radiologist. Discussed findings with my attending physician. MRI, MRA of the brain and MRI of the carotids has been ordered. Chest x-ray shows a left lower lobe infiltrate questionable tiny effusion. Labs reviewed, no acute findings. Cardiac enzymes negative x1 set. Patient will be admitted for further evaluation and workup. Blood pressure had trended back up to 220/98, labetalol 20 mg IV x1 dose was ordered. Patient was reassessed, she is resting comfortably with a friend at bedside. Discussed with Dr. Felix who accepted admission. Admit orders placed. Blood pressure trended down after 10 mg of labetalol IV. Patient is resting comfortably, family at bedside. Medical Screen Exam Complete: Yes Emergency Medical Condition: Yes Differential Diagnosis Differential Diagnosis: Hypertension versus hypertensive urgency versus CVA versus TIA versus metabolic abnormality Medical Records Medical records reviewed: Yes I reviewed the patient's medical records. Lab Data Lab results reviewed: Yes I reviewed the patient's lab results. Result diagrams: 06/30/18 03:44 06/30/18 10:49 Lab Results 06/29/18 06/29/18 06/29/18 Range/Units 18:35 18:35 18:35 WBC 6.5 (4.0-11.0) th/mm3 RBC 5.45 H (4.00-5.30) mil/mm3 Hgb 14.5 (11.6-15.3) gm/dL Hct 44.3 (35.0-46.0) % MCV 81.2 (80.0-100.0) fL MCH 26.6 L (27.0-34.0) pg MCHC 32.8 (32.0-36.0) % RDW 15.6 (11.6-17.2) % Plt Count 288 (150-450) th/mm3 MPV 7.6 (7.0-11.0) fL Neut % (Auto) 52.1 (16.0-70.0) % Lymph % (Auto) 39.5 (9.0-44.0) % [place] % (Auto) 6.8 (0.0-8.0) % Eos % (Auto) 0.4 (0.0-4.0) % Baso % (Auto) 1.2 (0.0-2.0) % Neut # (Auto) 3.4 (1.8-7.7) th/mm3 Lymph # (Auto) 2.6 (1.0-4.8) th/mm3 [place] # (Auto) 0.4 (0.0-0.9) th/mm3 Eos # (Auto) 0.0 (0.0-0.4) th/mm3 Baso # (Auto) 0.1 (0.0-0.2) th/mm3 WBC Differential . Differential Comment Auto diff final PT 10.6 (9.8-11.6) sec INR 1.0 Ratio APTT 25.2 (23.4-31.7) sec Sodium 140 (136-145) meq/L Potassium 3.8 (3.5-5.1) meq/L Chloride 108 H (98-107) meq/L Carbon Dioxide 28.0 (21.0-32.0) meq/L Anion Gap 4 L (5-15) meq/L BUN 12 (7-18) mg/dL Creatinine 0.83 (0.50-1.00) mg/dL Estimated GFR 85 L (>89) mL/min POC Glucose (68-110) mg/dl Random Glucose 84 (74-106) mg/dL Hemoglobin A1c (4.3-6.0) % Calcium 8.8 (8.5-10.1) mg/dL Magnesium 2.2 (1.5-2.5) mg/dL Total Bilirubin 0.2 (0.2-1.0) mg/dL AST 18 (15-37) U/L ALT 16 (10-53) U/L Alkaline Phosphatase 144 H (45-117) U/L Total Creatine Kinase 62 (26-192) U/L Troponin I Less than 0.02 L (0.02-0.05) ng/mL Total Protein 8.1 (6.4-8.2) g/dL Albumin 3.4 (3.4-5.0) g/dL Triglycerides (42-150) mg/dL Cholesterol (120-200) mg/dL LDL Cholesterol, Calc (0-99) mg/dL HDL Cholesterol (40.0-60.0) mg/dL Cholesterol/HDL Ratio Ratio TSH (0.358-3.740) uIU/mL Free T4 (0.76-1.46) ng/dL 06/29/18 06/30/18 06/30/18 Range/Units 21:44 03:44 03:44 WBC 6.0 (4.0-11.0) th/mm3 RBC 5.14 (4.00-5.30) mil/mm3 Hgb 13.7 (11.6-15.3) gm/dL Hct 41.0 (35.0-46.0) % MCV 79.8 L (80.0-100.0) fL MCH 26.6 L (27.0-34.0) pg MCHC 33.3 (32.0-36.0) % RDW 15.6 (11.6-17.2) % Plt Count 261 (150-450) th/mm3 MPV 7.6 (7.0-11.0) fL Neut % (Auto) 48.4 (16.0-70.0) % Lymph % (Auto) 43.2 (9.0-44.0) % [place] % (Auto) 7.3 (0.0-8.0) % Eos % (Auto) 0.2 (0.0-4.0) % Baso % (Auto) 0.9 (0.0-2.0) % Neut # (Auto) 2.9 (1.8-7.7) th/mm3 Lymph # (Auto) 2.6 (1.0-4.8) th/mm3 [place] # (Auto) 0.4 (0.0-0.9) th/mm3 Eos # (Auto) 0.0 (0.0-0.4) th/mm3 Baso # (Auto) 0.1 (0.0-0.2) th/mm3 WBC Differential . Differential Comment Auto diff final PT (9.8-11.6) sec INR Ratio APTT (23.4-31.7) sec Sodium 142 (136-145) meq/L Potassium 3.3 L (3.5-5.1) meq/L Chloride 109 H (98-107) meq/L Carbon Dioxide 28.3 (21.0-32.0) meq/L Anion Gap 5 (5-15) meq/L BUN 9 (7-18) mg/dL Creatinine 0.81 (0.50-1.00) mg/dL Estimated GFR 88 L (>89) mL/min POC Glucose 113 H (68-110) mg/dl Random Glucose 86 (74-106) mg/dL Hemoglobin A1c (4.3-6.0) % Calcium 8.6 (8.5-10.1) mg/dL Magnesium (1.5-2.5) mg/dL Total Bilirubin 0.4 (0.2-1.0) mg/dL AST 12 L (15-37) U/L ALT 14 (10-53) U/L Alkaline Phosphatase 128 H (45-117) U/L Total Creatine Kinase (26-192) U/L Troponin I (0.02-0.05) ng/mL Total Protein 7.4 D (6.4-8.2) g/dL Albumin 3.1 L (3.4-5.0) g/dL Triglycerides 84 (42-150) mg/dL Cholesterol 141 (120-200) mg/dL LDL Cholesterol, Calc 89 (0-99) mg/dL HDL Cholesterol 35.0 L (40.0-60.0) mg/dL Cholesterol/HDL Ratio 4.02 Ratio TSH (0.358-3.740) uIU/mL Free T4 (0.76-1.46) ng/dL 06/30/18 06/30/18 06/30/18 Range/Units 03:44 08:15 10:49 WBC (4.0-11.0) th/mm3 RBC (4.00-5.30) mil/mm3 Hgb (11.6-15.3) gm/dL Hct (35.0-46.0) % MCV (80.0-100.0) fL MCH (27.0-34.0) pg MCHC (32.0-36.0) % RDW (11.6-17.2) % Plt Count (150-450) th/mm3 MPV (7.0-11.0) fL Neut % (Auto) (16.0-70.0) % Lymph % (Auto) (9.0-44.0) % [place] % (Auto) (0.0-8.0) % Eos % (Auto) (0.0-4.0) % Baso % (Auto) (0.0-2.0) % Neut # (Auto) (1.8-7.7) th/mm3 Lymph # (Auto) (1.0-4.8) th/mm3 [place] # (Auto) (0.0-0.9) th/mm3 Eos # (Auto) (0.0-0.4) th/mm3 Baso # (Auto) (0.0-0.2) th/mm3 WBC Differential Differential Comment PT (9.8-11.6) sec INR Ratio APTT (23.4-31.7) sec Sodium (136-145) meq/L Potassium 3.6 (3.5-5.1) meq/L Chloride (98-107) meq/L Carbon Dioxide (21.0-32.0) meq/L Anion Gap (5-15) meq/L BUN (7-18) mg/dL Creatinine (0.50-1.00) mg/dL Estimated GFR (>89) mL/min POC Glucose 114 H (68-110) mg/dl Random Glucose (74-106) mg/dL Hemoglobin A1c 5.8 (4.3-6.0) % Calcium (8.5-10.1) mg/dL Magnesium (1.5-2.5) mg/dL Total Bilirubin (0.2-1.0) mg/dL AST (15-37) U/L ALT (10-53) U/L Alkaline Phosphatase (45-117) U/L Total Creatine Kinase (26-192) U/L Troponin I (0.02-0.05) ng/mL Total Protein (6.4-8.2) g/dL Albumin (3.4-5.0) g/dL Triglycerides (42-150) mg/dL Cholesterol (120-200) mg/dL LDL Cholesterol, Calc (0-99) mg/dL HDL Cholesterol (40.0-60.0) mg/dL Cholesterol/HDL Ratio Ratio TSH 0.379 (0.358-3.740) uIU/mL Free T4 1.23 (0.76-1.46) ng/dL 06/30/18 Range/Units 12:41 WBC (4.0-11.0) th/mm3 RBC (4.00-5.30) mil/mm3 Hgb (11.6-15.3) gm/dL Hct (35.0-46.0) % MCV (80.0-100.0) fL MCH (27.0-34.0) pg MCHC (32.0-36.0) % RDW (11.6-17.2) % Plt Count (150-450) th/mm3 MPV (7.0-11.0) fL Neut % (Auto) (16.0-70.0) % Lymph % (Auto) (9.0-44.0) % [place] % (Auto) (0.0-8.0) % Eos % (Auto) (0.0-4.0) % Baso % (Auto) (0.0-2.0) % Neut # (Auto) (1.8-7.7) th/mm3 Lymph # (Auto) (1.0-4.8) th/mm3 [place] # (Auto) (0.0-0.9) th/mm3 Eos # (Auto) (0.0-0.4) th/mm3 Baso # (Auto) (0.0-0.2) th/mm3 WBC Differential Differential Comment PT (9.8-11.6) sec INR Ratio APTT (23.4-31.7) sec Sodium (136-145) meq/L Potassium (3.5-5.1) meq/L Chloride (98-107) meq/L Carbon Dioxide (21.0-32.0) meq/L Anion Gap (5-15) meq/L BUN (7-18) mg/dL Creatinine (0.50-1.00) mg/dL Estimated GFR (>89) mL/min POC Glucose 100 (68-110) mg/dl Random Glucose (74-106) mg/dL Hemoglobin A1c (4.3-6.0) % Calcium (8.5-10.1) mg/dL Magnesium (1.5-2.5) mg/dL Total Bilirubin (0.2-1.0) mg/dL AST (15-37) U/L ALT (10-53) U/L Alkaline Phosphatase (45-117) U/L Total Creatine Kinase (26-192) U/L Troponin I (0.02-0.05) ng/mL Total Protein (6.4-8.2) g/dL Albumin (3.4-5.0) g/dL Triglycerides (42-150) mg/dL Cholesterol (120-200) mg/dL LDL Cholesterol, Calc (0-99) mg/dL HDL Cholesterol (40.0-60.0) mg/dL Cholesterol/HDL Ratio Ratio TSH (0.358-3.740) uIU/mL Free T4 (0.76-1.46) ng/dL Imaging Data Radiologist's impression: Chest X-Ray 06/29/18 18:01 CONCLUSION: Left lower lobe infiltrate with questionable tiny left effusion. Head CT 06/29/18 18:01 CONCLUSION: 1. Small area of decreased density involving the left parietal lobe as detailed above. I cannot exclude a small area of acute infarction. Consider MRI to further assess. . Head MRI 06/29/18 18:34 CONCLUSION: 1. Prominent periventricular and deep white matter signal abnormalities most consistent with ischemic white matter demyelination. This is more than expected for patient's age. 2. Otherwise, no acute abnormality. Specifically, no evidence for acute infarction, hemorrhage or mass as questioned. Head MRA 06/29/18 18:34 CONCLUSION: 1. Occlusion of the left internal carotid artery. 2. Reconstitution of the left anterior circulation likely via the anterior communicating artery and hypoplastic left posterior communicating artery. The left A1 segment is also hypoplastic. Despite this, the left MCA branches appear patent without evidence for MCA occlusion. Neck MRA 06/29/18 18:34 CONCLUSION: 1. Occluded left ICA at the level of the skull base. 2. Suspected high-grade stenosis of the proximal right ICA. 3. Patent vertebral arteries bilaterally. 4. Multiple thyroid nodules particularly on the right. Percent stenosis is calculated using the diameter of the stenotic region over the diameter of the normal distal internal carotid artery Discharge Plan Discharge Disposition Patient Disposition: ED Admit(ED Internal Use Only) Discharge Condition Condition: Stable Discharge Order Discharge Orders: ED Use Only Admit Order (Routine); Ordered 06/29/18 Ordered By: Shahid Cardona Discharge Details Diagnosis: Hypertension, Acute CVA (cerebrovascular accident) Physicians Team ED Provider: Shahid Cardona ED Midlevel Provider: Lorena Moya Primary Care Provider: Primary Care Deyanira Fritz Attending Provider: Pauly Lockwood Other Providers: Elena Ramsey ; Addy Mae Status ED Status: Left Department Discharge Information Discharge Date/Time: 06/29/18 23:02
[2018-06-29 19:18] LABS: Alanine Aminotransferase 16 U/L (10-53)
[2018-06-29 19:23] LABS: Albumin 3.4 g/dL (3.4-5.0); Alkaline Phosphatase 144 U/L (45-117); Anion Gap 4 meq/L (5-15); Aspartate Aminotransferase 18 U/L (15-37); Blood Urea Nitrogen 12 mg/dL (7-18); Calcium 8.8 mg/dL (8.5-10.1); Chloride 108 meq/L (98-107); Creatine Kinase 62 U/L (26-192); Glomerular Filtration Rate 85 mL/min (>89); Glucose,Random 84 mg/dL (74-106); Magnesium 2.2 mg/dL (1.5-2.5); Potassium 3.8 meq/L (3.5-5.1); Sodium 140 meq/L (136-145); Total Protein 8.1 g/dL (6.4-8.2)
[2018-06-29] MEDS ORDERED: Labetalol HCl Inj 100 MG/20 ML Vial IV.PUSH ONE (19:31)
[2018-06-29] MEDS ORDERED: Acetaminophen 325 MG Tablet PO PRN (19:56)
[2018-06-29] MEDS ORDERED: Dextrose 50% in Water 50 ML Vial IV.PUSH PRN (19:56)
[2018-06-29] MEDS ORDERED: Bisacodyl 10 MG Supp RECTAL PRN (19:56)
[2018-06-29] MEDS ORDERED: Gadobutrol PF 10 MMOL/10 ML Vial (for RAD) IV.SIG ONE (20:02)
--- NOTE | 2018-06-29 20:14 | MR ---
EXAM DATE: 06/29/2018 8:07 PM EST AGE/SEX: 58 years / Female INDICATIONS: CVA. CLINICAL DATA: This is the patient's initial encounter. Patient reports that signs and symptoms have been present for 1 day and indicates a pain score of 0/10. MEDICAL/SURGICAL HISTORY: Hypertension. Diabetes mellitus type II. Hysterectomy. COMPARISON: [facility] – [place], MR HEAD W & W/O CONTRAST, 06/29/2018. . TECHNIQUE: 3D [id number] MRA was performed. Source images, multiplanar STS MIP, and 3D volum e MIP reconstructions were reviewed. FINDINGS: Anterior Circulation: Intracranial Carotid Arteries: There is occlusion of the left internal carotid artery with reconstitu tion of the proximal left M1 segment. EL: Left A1 segment appears significantly hypoplastic. Otherwise, EL branches are intact. MCA: Reconstitution of the proximal left M1 segment. This is likely via small caliber A1 and P-comm. Otherwise, no MCA branch vessel occlusion or aneurysm. Posterior Circulation: Distal Vertebral Arteries: Distal Vertebral arteries are symetrical and patent. Basilar Artery: There is no evidence for aneurysm, vessel truncation or stenosis, and no evidence for vascular malformation. GUM SPRAYER and Cerebellar Branches: There is a patent right P-comm and hypoplastic left P-comm. There is no evidence for aneurysm, vessel truncation or stenosis, and no evidence for vascular malformation. CONCLUSION: 1. Occlusion of the left internal carotid artery. 2. Reconstitution of the left anterior circulation likely via the anterior communicating artery and hypoplastic left posterior communicating artery. The left A1 segment is also hypoplastic. Despite thi s, the left MCA branches appear patent without evidence for MCA occlusion. Electronically signed by: Too Clemente MD Board Certified Radiologist 06/29/2018 8:13 PM EST
--- NOTE | 2018-06-29 20:25 | MR ---
EXAM DATE: 06/29/2018 8:16 PM EST AGE/SEX: 58 years / Female INDICATIONS: Stroke. CLINICAL DATA: This is the patient's initial encounter. Patient reports that signs and symptoms have been present for 1 day and indicates a pain score of 0/10. MEDICAL/SURGICAL HISTORY: Hypertension. Diabetes mellitus type II. Hysterectomy. COMPARISON: No prior exams available for comparison. TECHNIQUE: Multiplanar, multisequence examination of the brain was performed without and with 10 ml G adavist (gadobutrol) contrast as a cumulative dose for multiple exams. FINDINGS: Cerebrum: The ventricles are normal for age. No evidence of midline shift, mass lesion, hemorrhage or acute infarction. No extraaxial fluid collections are seen. The pituitary gland and suprasellar cistern are normal in configuration. White Matter: Prominent periventricular and deep white matter T2 prolongation. No associated abnorma l enhancement or restricted diffusion. Posterior Fossa: The cerebellum and brainstem are intact. The 4th ventricle is midline. The cerebel lopontine angle is unremarkable. The cerebellar tonsils are normal in position. Diffusion Imaging: No focal areas of restricted diffusion are seen. No evidence of acute infarction . Extracranial: The visualized portions of the orbits and paranasal sinuses are unremarkable. Post Contrast: No abnormal areas of parenchymal or dural enhancement. No evidence of blood-brain ba rrier breakdown. CONCLUSION: 1. Prominent periventricular and deep white matter signal abnormalities most consistent with ischemi c white matter demyelination. This is more than expected for patient's age. 2. Otherwise, no acute abnormality. Specifically, no evidence for acute infarction, hemorrhage or ma ss as questioned. Electronically signed by: Too Clemente MD Board Certified Radiologist 06/29/2018 8:23 PM EST
--- NOTE | 2018-06-29 20:55 | MR ---
EXAM DATE: 06/29/2018 8:40 PM EST AGE/SEX: 58 years / Female INDICATIONS: Stroke. CLINICAL DATA: This is the patient's initial encounter. Patient reports that signs and symptoms have been present for 1 day and indicates a pain score of 0/10. MEDICAL/SURGICAL HISTORY: Hypertension. Diabetes mellitus type II. Hysterectomy. COMPARISON: No prior exams available for comparison. TECHNIQUE: 10 ml Gadavist (gadobutrol) contrast infused MRA (cumulative dose for multiple exams) of the extracranial circulation was performed using a neurovascular coil. Postprocessing was performed , including rotating sub-volume maximum intensity projections of each carotid artery, rotating full-v olume maximum intensity projections of both carotid arteries, sagittal and coronal sliding thin-slab reformations of each carotid artery, and left oblique sliding thin-slab reformation through the aorti c arch to include the origin of the arch branch vessels. FINDINGS: Aortic Arch : There is a three-vessel origin of the great vessels from the aorta. No evidence of o stial narrowing. Right Carotid : The common carotid artery is patent. There is a focal area of poor signal involving the proximal ICA occurring approximately 1 cm cephalad to the origin concerning for a high-grade sten osis. The more cephalad portion of the extracranial ICA is patent. The ECA is patent.. Left Carotid : The common carotid artery is patent. The extracranial ICA shows poor signal with a lo ng segment luminal narrowing of the extracranial portion of the ICA extending from just past its orig in through the level the skull base. There is lack of signal at the junction of the petrous and intra cavernous portions consistent with occlusion. See the intracranial portion discussed separately. The ECA is patent. Vertebrals : The vertebral arteries have a symmetric diameter. No stenotic lesions are seen. CONCLUSION: 1. Occluded left ICA at the level of the skull base. 2. Suspected high-grade stenosis of the proximal right ICA. 3. Patent vertebral arteries bilaterally. 4. Multiple thyroid nodules particularly on the right. Percent stenosis is calculated using the diameter of the stenotic region over the diameter of the nor mal distal internal carotid artery Electronically signed by: Jaya Elizondo MD Board Certified Radiologist 06/29/2018 8:53 PM EST
[2018-06-29] MEDS: Insulin NovoLOG Aspart Correctional Sugar Inj SQ SCH (21:46)
[2018-06-29] MEDS: Senna/Docusate Sodium 8.6/50 MG Tablet PO SCH (23:51)
[2018-06-30 03:57] LABS: Baso # (Auto) 0.1 th/mm3 (0.0-0.2); Baso % (Auto) 0.9 % (0.0-2.0); Eos % (Auto) 0.2 % (0.0-4.0); Hemoglobin 13.7 gm/dL (11.6-15.3); Lymph # (Auto) 2.6 th/mm3 (1.0-4.8); Lymph % (Auto) 43.2 % (9.0-44.0); Mean Corpuscular HGB Conc 33.3 % (32.0-36.0); Mean Corpuscular Hemoglobin 26.6 pg (27.0-34.0); Mean Corpuscular Volume 79.8 fL (80.0-100.0); Mean Platelet Volume 7.6 fL (7.0-11.0); Mono # (Auto) 0.4 th/mm3 (0.0-0.9); Mono % (Auto) 7.3 % (0.0-8.0); Neut # (Auto) 2.9 th/mm3 (1.8-7.7); Neut % (Auto) 48.4 % (16.0-70.0); Platelet Count 261 th/mm3 (150-450); Red Blood Count 5.14 mil/mm3 (4.00-5.30); Red Cell Distribution Width 15.6 % (11.6-17.2)
[2018-06-30 04:22] LABS: Alanine Aminotransferase 14 U/L (10-53); Albumin 3.1 g/dL (3.4-5.0); Anion Gap 5 meq/L (5-15); Aspartate Aminotransferase 12 U/L (15-37); Blood Urea Nitrogen 9 mg/dL (7-18); Calcium 8.6 mg/dL (8.5-10.1); Carbon Dioxide 28.3 meq/L (21.0-32.0); Chloride 109 meq/L (98-107); Cholesterol 141 mg/dL (120-200); Glomerular Filtration Rate 88 mL/min (>89); Glucose,Random 86 mg/dL (74-106); Potassium 3.3 meq/L (3.5-5.1); Sodium 142 meq/L (136-145); Triglycerides 84 mg/dL (42-150)
[2018-06-30 04:24] LABS: Alkaline Phosphatase 128 U/L (45-117); Chol/HDL Ratio 4.02 Ratio; LDL Cholesterol,Calculated 89 mg/dL (0-99); Total Protein 7.4 g/dL (6.4-8.2)
--- NOTE | 2018-06-30 07:55 | P.PNVS ---
Subjective Subjective/Hospital Course: Referral Received Full consult dictated Patient has left internal carotid artery occlusion and a tight high-grade stenosis of the right internal carotid artery and this should be surgically addressed at this admission provided patient's cardiac status is adequate and acceptable risk for surgery Echo pending Tentatively patient will be scheduled for right internal carotid endarterectomy on Tuesday Objective Vital Signs / I&O: Vital Signs 06/29/18 14:57 06/29/18 17:41 06/29/18 18:01 Temperature 98.5 F Pulse Rate 77 71 Respiratory Rate 17 16 Blood Pressure 180/77 H 175/74 H Pulse Oximetry 99 99 99 06/29/18 19:15 06/29/18 20:38 06/29/18 20:53 Temperature Pulse Rate 72 80 Respiratory Rate 20 20 Blood Pressure 190/81 H 221/91 H 161/62 H Pulse Oximetry 100 99 06/29/18 20:54 06/29/18 21:40 06/30/18 00:00 Temperature 98 F Pulse Rate 78 85 78 Respiratory Rate 20 18 Blood Pressure 152/70 H 163/72 H 137/63 Pulse Oximetry 98 99 98 06/30/18 04:00 Temperature 98.2 F Pulse Rate 90 Respiratory Rate 18 Blood Pressure 158/76 H Pulse Oximetry 95 Intake & Output 06/29/18 06/30/18 06/30/18 18:59 06:59 18:59 Weight 95.254 kg 95.254 kg Other: # Voids 2 Laboratory Results - last 24 hr 06/29/18 06/29/18 06/29/18 18:35 18:35 18:35 WBC 6.5 RBC 5.45 H Hgb 14.5 Hct 44.3 MCV 81.2 MCH 26.6 L MCHC 32.8 RDW 15.6 Plt Count 288 MPV 7.6 Neut % (Auto) 52.1 Lymph % (Auto) 39.5 Douglas % (Auto) 6.8 Eos % (Auto) 0.4 Baso % (Auto) 1.2 Neut # (Auto) 3.4 Lymph # (Auto) 2.6 Douglas # (Auto) 0.4 Eos # (Auto) 0.0 Baso # (Auto) 0.1 WBC Differential . Differential Comment Auto diff final PT 10.6 INR 1.0 APTT 25.2 Sodium 140 Potassium 3.8 Chloride 108 H Carbon Dioxide 28.0 Anion Gap 4 L BUN 12 Creatinine 0.83 Estimated GFR 85 L POC Glucose Random Glucose 84 Calcium 8.8 Magnesium 2.2 Total Bilirubin 0.2 AST 18 ALT 16 Alkaline Phosphatase 144 H Total Creatine Kinase 62 Troponin I Less than 0.02 L Total Protein 8.1 Albumin 3.4 Triglycerides Cholesterol LDL Cholesterol, Calc HDL Cholesterol Cholesterol/HDL Ratio 06/29/18 06/30/18 06/30/18 21:44 03:44 03:44 WBC 6.0 RBC 5.14 Hgb 13.7 Hct 41.0 MCV 79.8 L MCH 26.6 L MCHC 33.3 RDW 15.6 Plt Count 261 MPV 7.6 Neut % (Auto) 48.4 Lymph % (Auto) 43.2 Douglas % (Auto) 7.3 Eos % (Auto) 0.2 Baso % (Auto) 0.9 Neut # (Auto) 2.9 Lymph # (Auto) 2.6 Douglas # (Auto) 0.4 Eos # (Auto) 0.0 Baso # (Auto) 0.1 WBC Differential . Differential Comment Auto diff final PT INR APTT Sodium 142 Potassium 3.3 L Chloride 109 H Carbon Dioxide 28.3 Anion Gap 5 BUN 9 Creatinine 0.81 Estimated GFR 88 L POC Glucose 113 H Random Glucose 86 Calcium 8.6 Magnesium Total Bilirubin 0.4 AST 12 L ALT 14 Alkaline Phosphatase 128 H Total Creatine Kinase Troponin I Total Protein 7.4 D Albumin 3.1 L Triglycerides 84 Cholesterol 141 LDL Cholesterol, Calc 89 HDL Cholesterol 35.0 L Cholesterol/HDL Ratio 4.02 Impressions Chest X-Ray 06/29/18 18:01 CONCLUSION: Left lower lobe infiltrate with questionable tiny left effusion. Head CT 06/29/18 18:01 CONCLUSION: 1. Small area of decreased density involving the left parietal lobe as detailed above. I cannot exclude a small area of acute infarction. Consider MRI to further assess. . Head MRI 06/29/18 18:34 CONCLUSION: 1. Prominent periventricular and deep white matter signal abnormalities most consistent with ischemic white matter demyelination. This is more than expected for patient's age. 2. Otherwise, no acute abnormality. Specifically, no evidence for acute infarction, hemorrhage or mass as questioned. Head MRA 06/29/18 18:34 CONCLUSION: 1. Occlusion of the left internal carotid artery. 2. Reconstitution of the left anterior circulation likely via the anterior communicating artery and hypoplastic left posterior communicating artery. The left A1 segment is also hypoplastic. Despite this, the left MCA branches appear patent without evidence for MCA occlusion. Neck MRA 06/29/18 18:34 CONCLUSION: 1. Occluded left ICA at the level of the skull base. 2. Suspected high-grade stenosis of the proximal right ICA. 3. Patent vertebral arteries bilaterally. 4. Multiple thyroid nodules particularly on the right. Percent stenosis is calculated using the diameter of the stenotic region over the diameter of the normal distal internal carotid artery
[2018-06-30] MEDS: Insulin NovoLOG Aspart Correctional Sugar Inj SQ SCH ×4 (08:48→21:00)
--- NOTE | 2018-06-30 08:59 | P.HPIM ---
History of Present Illness Service: [facility] Primary Care Physician: No Primary Care Physician Chief Complaint: came to ED for evaluation of elevated blood pressure History of Present Illness: Patient is a 58 year old female with a past medical history significant for type II diabetes mellitus, non insulin dependent, chronic LBP, left knee pain and hypertension. She states she ran out of her blood pressure medications approximately 2 weeks. She followed up at her pain management clinic today for a refill of her medications and was told that her blood pressure was elevated. Patient states "my blood pressure [id number]." Patient was given a refill for her blood pressure medication and advised to follow up with her primary care provider. Patient went to the pharmacy to fill her prescriptions and states the pharmacist recommended for her to come to the emergency department for further evaluation and treatment. Patient's blood pressure in the ED was noted to be 180/77. She received Labetalol and Amlodipine. Her blood pressure at time of evaluation is 140/65. Patient takes Metoprolol 25 mg PO BID at home. She reports history of angioedema with Lisinopril. Patient denies chest pain, shortness of breath, palpitations, lower extremity edema/pain or headache. She reports occasional feeling of dizziness but states that this is rare. Denies vision changes. No upper or lower extremity weakness, facial droop or speech changes. MRI brain findings consistent with ischemic white matter demyelination, more than expected for patient's age. Patient states she was previously told that she may have MS but doesn't believe she does and states she never followed up for a second opinion. MRA head shows occlusion of the left internal carotid artery. Neck MRA with occluded left ICA at the level of the skull base and suspected high grade stenosis of the proximal right ICA. Diagnosis (1) H/O: hysterectomy: Inpatient Certification Inpatient Certification: I certify that the inpatient services were ordered in accordance with Medicare regulations governing the order. This includes certification that hospital inpatient services are reasonable and necessary and in the case of services not specified as inpatient-only under 42 CFR 419.22(n), that they are appropriately provided as inpatient services in accordance to with the 2-midnight benchmark under 43 CFR 412.3(e) Estimated Total Length of Stay (Days): 4 Plans for Post Hospital Care: Home Review of Systems Review of Systems: all other systems reviewed are negative (except as documented all other systems reviewed and negative) PMFSH History History Provided By: Patient Medical History Medical History H/O: hysterectomy (Acute) Chronic pain (Acute) Diabetes (Acute) Hypertension (Acute) Surgical History Surgical History No history of previous surgery (Acute) Family History Family History Mother Heart attack Father Liver cancer Social History Social History Substance History: No History of Abuse Second Hand Smoke Exposure: Yes Smoking Status: Heavy tobacco smoker Tobacco Type: Cigarettes How Often Do You Have a Drink Containing Alcohol: Never Recent Travel in [facility] within the Last 8 Weeks: No Recent Out of Country Travel within the Last 8 Weeks: No Immunization History Tetanus Immunization: Unsure Medications and Allergies Allergies Allergy/AdvReac Type Severity Reaction Status Date / Time lisinopril Allergy Severe angioedema Verified 06/29/18 17:57 sodium hypochlorite solution Allergy Intermediate Rash Verified 06/29/18 17:57 sulfamethoxazole Allergy Unknown Swelling Verified 06/29/18 17:57 trimethoprim Allergy Unknown Swelling Verified 06/29/18 17:57 Home Medications Medication Instructions Recorded Confirmed Type metformin 500 mg PO BID 06/29/18 06/29/18 History metoprolol tartrate 25 mg PO BID 06/29/18 06/29/18 History Active Medications: Active Medications Acetaminophen (Tylenol) 650 mg PO Q4H PRN PRN Reason: Temp > 100.4 Acetaminophen (Tylenol) 650 mg PO Q4H PRN PRN Reason: Temp > 100.4 Al Hydroxide/Mg Hydroxide (Milk Of Magnperri Liq) 30 ml PO Q12H PRN PRN Reason: Mild Constipation Aspirin (Ecotrin) 325 mg PO DAILY GEOVANNY Bisacodyl (Dulcolax Supp) 10 mg RECTAL DAILY PRN PRN Reason: SEVERE CONSITIPATION Dextrose (D50w Vial) 50 ml IV.PUSH UNSCH PRN PRN Reason: PER HYPOGLYCEMIA PROTOCOL Enoxaparin Sodium (Lovenox Inj) 40 mg SQ Q24H GEOVANNY Glucagon (Glucagon Inj) 1 mg OTHER PRN PRN PRN Reason: for Hypoglycemia Protocol Insulin Aspart (Novolog Insulin Correctional Sugar Inj) 0 unit SQ ACHS [facility]; Protocol Last Admin: 06/30/18 08:48 Dose: Not Given Lactulose (Lactulose Liq) 30 ml PO DAILY PRN PRN Reason: SEVERE CONSITIPATION Ondansetron HCl (Zofran Inj) 4 mg IV.PUSH Q6H PRN PRN Reason: NAUSEA OR VOMITING Ondansetron HCl (Zofran Inj) 4 mg IV.PUSH Q6H PRN PRN Reason: NAUSEA OR VOMITING Senna/Docusate Sodium (Constanza-Colace) 1 tab PO BID [facility] Last Admin: 06/29/18 23:51 Dose: Not Given Sennosides (Senokot) 17.2 mg PO Q12H PRN PRN Reason: Moderate Constipation Sodium Chloride (Ns Flush) 2 ml IV.FLUSH UNSCH PRN PRN Reason: FLUSH AFTER USING IV ACCESS Sodium Chloride (Ns Flush) 2 ml IV.FLUSH PRN PRN PRN Reason: FLUSH AFTER USING IV ACCESS Sodium Chloride (Ns Flush) 2 ml IV.FLUSH BID [facility] Last Admin: 06/29/18 21:46 Dose: 2 ml Sodium Chloride (Ns Flush) 2 ml IV.FLUSH BID [facility] Last Admin: 06/29/18 21:46 Dose: Not Given Sodium Chloride (Ns Flush) 2 ml IV.FLUSH PRN PRN PRN Reason: FLUSH AFTER USING IV ACCESS Physical Exam Vital signs: Last Vital Signs Temp 98.1 F 06/30/18 08:15 Pulse 70 06/30/18 08:15 Resp 20 06/30/18 08:15 BP 140/65 06/30/18 08:15 Pulse Ox 99 06/30/18 08:15 Intake & Output 06/28/18 06/29/18 06/30/18 07/01/18 06:59 06:59 06:59 06:59 Weight 95.254 kg Constitutional no acute distress, average body habitus and cooperative Routine HEENT Exam Head: Present normocephalic and atraumatic ENT: Present mucous membranes moist Routine Neck Exam Present supple and full ROM; Absent JVD and tracheal deviation Routine Chest/Breast/Axilla Exam Chest wall: Absent tenderness Routine Respiratory Exam Present decreased breath sounds; Absent accessory muscle use, respiratory distress and wheezes Routine Cardiovascular Exam Present RRR, S1 and S2; Absent murmur Routine Abdominal Exam Present soft; Absent tenderness and distended Routine Extremities Exam Present full ROM and pulses intact; Absent cyanosis and edema Routine Skin Exam Present intact Routine Neurological Exam Present alert, oriented X3, CN II-XII intact and moving all extremities Routine Psychiatric Exam Present normal affect, normal thought process, cooperative, good insight and good judgment Results Labs CBC & Chem 7: 06/30/18 03:44 06/30/18 03:44 Imaging Impressions Chest X-Ray 06/29/18 18:01 CONCLUSION: Left lower lobe infiltrate with questionable tiny left effusion. Head CT 06/29/18 18:01 CONCLUSION: 1. Small area of decreased density involving the left parietal lobe as detailed above. I cannot exclude a small area of acute infarction. Consider MRI to further assess. . Head MRI 06/29/18 18:34 CONCLUSION: 1. Prominent periventricular and deep white matter signal abnormalities most consistent with ischemic white matter demyelination. This is more than expected for patient's age. 2. Otherwise, no acute abnormality. Specifically, no evidence for acute infarction, hemorrhage or mass as questioned. Head MRA 06/29/18 18:34 CONCLUSION: 1. Occlusion of the left internal carotid artery. 2. Reconstitution of the left anterior circulation likely via the anterior communicating artery and hypoplastic left posterior communicating artery. The left A1 segment is also hypoplastic. Despite this, the left MCA branches appear patent without evidence for MCA occlusion. Neck MRA 06/29/18 18:34 CONCLUSION: 1. Occluded left ICA at the level of the skull base. 2. Suspected high-grade stenosis of the proximal right ICA. 3. Patent vertebral arteries bilaterally. 4. Multiple thyroid nodules particularly on the right. Percent stenosis is calculated using the diameter of the stenotic region over the diameter of the normal distal internal carotid artery Caprini VTE Risk Assessment Caprini VTE Risk Assessment: No/Low Risk (score <= 1) Teresai Risk Assessment Model: Point Value = 1 Point Value = 2 Point Value = 3 Point Value = 5 Age 41-60 Minor surgery BMI > 25 kg/m2 Swollen legs Varicose veins or History of unexplained or recurrent spontaneous Oral contraceptives or hormone replacement Sepsis (< 1 month) Serious lung disease, including pneumonia (< 1 month) Abnormal pulmonary function Acute myocardial infarction Congestive heart failure (< 1 month) History of inflammatory bowel disease Medical patient at bed rest Age 61-74 Arthroscopic surgery Major open surgery (> 45 min) Laparoscopic surgery (> 45 min) Malignancy Confined to bed (> 72 hours) Immobilizing plaster cast Central venous access Age >= 75 History of VTE Family history of VTE Factor V Leiden Prothrombin [id number] Lupus anticoagulant Anticardiolipin antibodies Elevated serum homocysteine Heparin-induced thrombocytopenia Other congenital or acquired thrombophilia Stroke (< 1 month) Elective arthroplasty Hip, pelvis, or leg fracture Acute spinal cord injury (< 1 month) Prophylaxis Regimen: Total Risk Factor Score Risk Level Prophylaxis Regimen 0-1 Low Early ambulation 2 Moderate Order ONE of the following: *Sequential Compression Device (SCD) *Heparin 5000 units SQ BID 3-4 Higher Order ONE of the following medications: *Heparin 5000 units SQ TID *Enoxaparin/Lovenox 40 mg SQ daily (WT < 150 kg, CrCl > 30 mL/min) *Enoxaparin/Lovenox 30 mg SQ daily (WT < 150 kg, CrCl > 10-29 mL/min) *Enoxaparin/Lovenox 30 mg SQ BID (WT < 150 kg, CrCl > 30 mL/min) AND/OR *Sequential Compression Device (SCD) 5 or more Highest Order ONE of the following medications: *Heparin 5000 units SQ TID (Preferred with Epidurals) *Enoxaparin/Lovenox 40 mg SQ daily (WT < 150 kg, CrCl > 30 mL/min) *Enoxaparin/Lovenox 30 mg SQ daily (WT < 150 kg, CrCl > 10-29 mL/min) *Enoxaparin/Lovenox 30 mg SQ BID (WT < 150 kg, CrCl > 30 mL/min) AND *Sequential Compression Device (SCD) Assessment and Plan (1) H/O: hysterectomy: Code(s): Z90.710 - Acquired absence of both cervix and uterus Status: Acute Plan Patient is a pleasant 58 year old female with a past medical history significant for non insulin dependent type II diabetes mellitus, hypertension and tobacco use. She presented to the ED for evaluation and management of her blood pressure that was noted to be elevated during her pain management office appointment. Patient ran out of her blood pressure medications 2 weeks ago. Hypertensive urgency -pt ran out of her blood pressure medication metoprolol tartrate 25 mg PO BID -given Labetalol and Amlodipine in ED with improvement in her B/P -Angioedema with Lisinopril use in the past -continue Metoprolol, add Amlodipine if indicated -CT head w/ small area of decreased density involving the left parietal lobe, unable to exclude acute infarction. MRI brain w/ findings c/w ischemic white matter demyelination but no evidence for acute infarction. -monitor vital signs per unit protocol Probable CVA -see imaging findings as noted -MRI head w/ no evidence for acute infarction, however, findings c/w ischemic white matter demyelination -Neurology consulted -PT eval/ treat Carotid artery occlusion -MRA neck showing occluded left ICA at the level of the skull base and suspected high-grade stenosis of the proximal right ICA -Vascular surgery consulted for evaluation and treatment recommendations Type II non insulin dependent diabetes mellitus -check A1c -hold Metformin -accuchecks ac/hs with SSI -ADA diet Hypokalemia -K 3.3 at time of admission -recheck K level, replace if indicated -monitor Incidental finding of multiple thyroid nodules particularly on the right -findings discussed with patient -check TSH, free T4 Questionable MS -pt states she was previously told she may have MS but did not follow up for second opinion MDM: self Code: Full GI ppx: not indicated DVT ppx: SCD's, ambulatory Dispo: Home once medically optimized Discussed Condition With: RN, patient
[2018-06-30] MEDS: Enoxaparin Inj 40 MG/0.4 ML Syringe SQ SCH (09:47)
[2018-06-30] MEDS: Senna/Docusate Sodium 8.6/50 MG Tablet PO SCH ×2 (09:47→22:28)
[2018-06-30 12:30] LABS: Potassium 3.6 meq/L (3.5-5.1)
[2018-06-30 12:40] LABS: Free T4 (Free Thyroxine) 1.23 ng/dL (0.76-1.46); Thyroid Stimulating Hormone 0.379 uIU/mL (0.358-3.740)
[2018-06-30 13:03] LABS: Hemoglobin A1c 5.8 % (4.3-6.0)
[2018-06-30] MEDS: amLODIPine 5 MG Tablet PO SCH (15:36)
--- NOTE | 2018-06-30 16:06 | MB ---
cc: Elena Ramsey MD DATE: 06/30/2018 REASON FOR CONSULTATION: Carotid disease, TIA. HISTORY OF PRESENT ILLNESS: This is a 58-year-old woman with a history of diabetes, chronic back pain, hypertension who apparently ran out of her antihypertensive medicine a couple weeks ago, was given finally a refill for some medication by primary, went to the pharmacy, and the pharmacist recommended she come to the ER. She was found to have a blood pressure of 180/77. Given some labetalol and amlodipine. Blood pressure went down to 140/65. Normally taking metoprolol 25 mg b.i.d. at home. She has some occasional dizziness and numbness on the left side of her face, which is rare, but no weakness, no issues with movement, balance. She had an MRI of the brain and [place] and carotids and found to have an occluded left ICA and what looks like a high-grade stenosis of the right ICA. MRI of the brain fortunately did not show any acute stroke. She is telling me that she is going to have a right carotid endarterectomy on Tuesday. PAST MEDICAL HISTORY: As stated. SOCIAL HISTORY: She is a heavy smoker of cigarettes. No significant alcohol use. ALLERGIES: PLEASE REFER TO HER ALLERGY LIST. MEDICATION LIST: She denies taking aspirin. PHYSICAL EXAMINATION: VITAL SIGNS: Her temperature is 97.8, pulse 69, respiratory rate 20, blood pressure 160/69, saturating 92% on room air. NECK: Supple. No appreciable bruit. CARDIOVASCULAR: Regular. NEUROLOGIC: She is awake and alert and fluent. Her pupils are reactive. Visual mcdaniel full. Face symmetric. Tongue midline. Motor zee, she does not exhibit any weakness, drift, or leg lag. Cerebellar testing is normal. She has been ambulating around the room without difficulty. LABORATORY DATA: Her MRI of the brain did not show anything acute. It shows white matter disease. MRA showed occluded left ICA with reconstitution of the left EL via the anterior communicating artery. The left A1 segment is hypoplastic. The left MCA branches seem to be patent without occlusion. Neck MRA shows occluded left ICA at the skull base, suspected high-grade stenosis proximal right ICA. Vertebral arteries are patent and there are some nodules on the thyroid on the right. ASSESSMENT AND PLAN: A 58-year-old woman with a history of significant smoking, hypertension, diabetes with occluded left internal carotid artery and what looks high-grade stenosis on the right. Recommend, if indicated per vascular surgery, that she have the endarterectomy on the right. Permissible hypertension until surgery. Continue her baby aspirin, stop the baby aspirin prior to surgery. She is also on Plavix 75 mg. If she was not on any antiplatelet such as aspirin, I would not put her on anything more than aspirin daily. However, if she was already on baby aspirin, Plavix is a good add on and can be continued with stopping baby aspirin [address] Continue current care. We will be glad to follow her as an outpatient if needed. Thank you for consulting neurology. MD MARK Moise/ts , 03:38 PM , 03:48 PM
--- NOTE | 2018-06-30 18:24 | ECG ---
Date Performed: 06/29/2018 Time Performed: 18:17:06 PTAGE: 58 years EKG: Sinus rhythm SEPTAL MYOCARDIAL INFARCTION Compared to previous tracing, previously seen St changes have improved ABNORMAL ECG PREVIOUS TRACING : 11/09/2017 18.12 DOCTOR: Michel Díaz Interpretating Date/Time 06/30/2018 18:24:25
--- NOTE | 2018-06-30 19:48 | MB ---
cc: Addy Mae MD DATE: 06/30/2018 CONSULTING PHYSICIAN: Addy Mae MD, Vascular Surgery REASON FOR CONSULTATION: Carotid artery stenosis and carotid artery occlusion. HISTORY OF PRESENT ILLNESS: This is a 58-year-old female with uncontrolled hypertension and poorly controlled diabetes mellitus, presents to the hospital with symptoms of dizziness, headache and some blurring of vision. The patient states that she did not lose the vision in the eye; however, it became blurry on several occasions in the left eye in the last 48 hours. The patient does not have any pneumothorax symptoms. She was evaluated, and was found to have systolic blood pressure of 220/180 and admitted for malignant hypertension and therapy. She underwent CT of the head and MRI, which revealed essentially left internal carotid artery occlusion at the level of the foramen rotundum of the skull and on the right side, high-grade, about 80% stenosis of the carotid artery at the bifurcation, in addition, the patient has incomplete posterior communicating artery. PAST MEDICAL HISTORY: Hypertension, diabetes mellitus, poorly controlled. PAST SURGICAL HISTORY: Hysterectomy. MEDICATIONS: Can be found in the record. SOCIAL HISTORY: The patient smokes about 1-1/2 packs a day most of her adult life. Does not drink. PHYSICAL EXAMINATION: GENERAL: Reveals a thin 58-year-old female. HEENT: Normocephalic. No trauma to the head. Pupils are equal and reactive. Extraocular muscles intact. NECK: Bilateral carotid pulses and right-sided carotid bruit about 3/6. No masses in the neck. No lymphadenopathy. Actually, just by exam, I could not tell if left carotid was occluded because the patient clearly has pulsations of the common carotid on the left. CHEST: Bilateral breath sounds, decreased over both lungs mcdaniel. The patient has moderate to severe COPD with chest wall musculature loss and signs of pulmonary cachexia. HEART: Regular rate and rhythm, rate is about 80. ABDOMEN: Soft. Active bowel sounds. No rebound, no guarding, no masses. EXTREMITIES: Grossly normal limits. The patient has good proximal and distal pulses. No signs of acute vascular deficit. BACK: Normal. IMPRESSION AND RECOMMENDATIONS: I reviewed laboratory and diagnostic procedures. This lady has had an MRA/MRI that does not reveal an acute stroke; however ischemic demyelination is noted in the periventricular areas. MRA of the neck unfortunately reveals left internal carotid artery occlusion and a high-grade right carotid artery stenosis. Based on all of the above, it is my recommendation that the patient should have right carotid endarterectomy at this admission. She will be placed on Plavix. She should have a short cardiac workup preop, considering that there is a high likelihood that the patient has also coexisting coronary artery disease, at least an echo should be performed and if abnormal, the patient may need a further studies. Nonetheless, carotid artery is nearly occluded on the right side and with incomplete posterior communicating artery. I am not quite sure what is supplying the left side at this time, but nonetheless taking all of it into account, the patient should have a right carotid endarterectomy at this admission. We will prepare the patient best as we can, I explained this to the patient in detail, and proceed with surgery, likely Tuesday. I thank you very much for the referral. MD SERENITY Stone/roby , 07:12 PM , 07:21 PM
[2018-06-30] MEDS: Metoprolol Tartrate 25 MG Tablet PO SCH (22:27)
[2018-06-30] MEDS: Acetaminophen 325 MG Tablet PO PRN (22:27)
[2018-07-01] MEDS: Insulin NovoLOG Aspart Correctional Sugar Inj SQ SCH ×4 (07:40→21:00)
[2018-07-01 07:43] LABS: Baso % (Auto) 0.5 % (0.0-2.0); Eos % (Auto) 0.5 % (0.0-4.0); Hematocrit 41.3 % (35.0-46.0); Hemoglobin 13.6 gm/dL (11.6-15.3); Lymph # (Auto) 2.2 th/mm3 (1.0-4.8); Lymph % (Auto) 50.2 % (9.0-44.0); Mean Corpuscular HGB Conc 32.9 % (32.0-36.0); Mean Corpuscular Hemoglobin 26.7 pg (27.0-34.0); Mean Corpuscular Volume 81.2 fL (80.0-100.0); Mean Platelet Volume 7.9 fL (7.0-11.0); Mono # (Auto) 0.5 th/mm3 (0.0-0.9); Mono % (Auto) 10.9 % (0.0-8.0); Neut # (Auto) 1.7 th/mm3 (1.8-7.7); Neut % (Auto) 37.9 % (16.0-70.0); Platelet Count 244 th/mm3 (150-450); Red Blood Count 5.08 mil/mm3 (4.00-5.30); Red Cell Distribution Width 15.4 % (11.6-17.2); White Blood Count 4.4 th/mm3 (4.0-11.0)
[2018-07-01 07:54] LABS: Anion Gap 5 meq/L (5-15); Blood Urea Nitrogen 12 mg/dL (7-18); Calcium 8.7 mg/dL (8.5-10.1); Carbon Dioxide 26.9 meq/L (21.0-32.0); Chloride 111 meq/L (98-107); Glomerular Filtration Rate Greater Than 89 mL/min (>89); Glucose,Random 95 mg/dL (74-106); Potassium 3.7 meq/L (3.5-5.1); Sodium 143 meq/L (136-145)
[2018-07-01] MEDS: Metoprolol Tartrate 25 MG Tablet PO SCH ×2 (08:35→22:11)
[2018-07-01] MEDS: amLODIPine 5 MG Tablet PO SCH (08:36)
[2018-07-01] MEDS: Enoxaparin Inj 40 MG/0.4 ML Syringe SQ SCH (08:36)
[2018-07-01] MEDS: Senna/Docusate Sodium 8.6/50 MG Tablet PO SCH (08:37)
--- NOTE | 2018-07-01 13:53 | P.PNVS ---
Subjective Subjective/Hospital Course: Referral Received Full consult dictated Patient has left internal carotid artery occlusion and a tight high-grade stenosis of the right internal carotid artery and this should be surgically addressed at this admission provided patient's cardiac status is adequate and acceptable risk for surgery Echo pending Tentatively patient will be scheduled for right internal carotid endarterectomy on Tuesday J 07/01/2018 This is a 58-year-old female with uncontrolled hypertension and poorly controlled diabetes mellitus, presents to the hospital with symptoms of dizziness, headache and some blurring of vision. The patient states that she did not lose the vision in the eye; however, it became blurry on several occasions in the left eye in the last 48 hours. She was evaluated, and was found to have systolic blood pressure of 220/180 and admitted for malignant hypertension and therapy. She underwent CT of the head and MRI, which revealed essentially left internal carotid artery occlusion at the level of the foramen rotundum of the skull and on the right side, high-grade , about 80% stenosis of the carotid artery at the bifurcation, in addition, the patient has incomplete posterior communicating artery. I reviewed laboratory and diagnostic procedures. This lady has had an MRA/MRI that does not reveal an acute stroke; however ischemic demyelination is noted in the periventricular areas. MRA of the neck unfortunately reveals left internal carotid artery occlusion and a high-grade right carotid artery stenosis. Based on all of the above, it is my recommendation that the patient should have right carotid endarterectomy at this admission. She will be placed on Plavix. She should have a short cardiac workup preop, considering that there is a high likelihood that the patient has also coexisting coronary artery disease, at least an echo should be performed and if abnormal, the patient may need a further studies. Nonetheless, carotid artery is nearly occluded on the right side and with incomplete posterior communicating artery. I am not quite sure what is supplying the left side at this time, but nonetheless taking all of it into account, the patient should have a right carotid endarterectomy at this admission. We will prepare the patient best as we can, I explained this to the patient in detail, and proceed with surgery, likely Tuesday. Objective Vital Signs / I&O: Vital Signs 06/30/18 14:15 06/30/18 17:09 06/30/18 20:32 Temperature 97.9 F 97.7 F Pulse Rate 72 67 Respiratory Rate 20 20 Blood Pressure 150/60 H 184/75 H Pulse Oximetry 93 L 98 98 07/01/18 00:00 07/01/18 01:03 07/01/18 04:32 Temperature 97.4 F L 97.7 F Pulse Rate 61 60 57 L Respiratory Rate 20 20 Blood Pressure 138/61 131/63 Pulse Oximetry 95 98 07/01/18 08:25 07/01/18 12:15 Temperature 98.4 F 98.6 F Pulse Rate 62 58 L Respiratory Rate 20 20 Blood Pressure 147/66 H 126/63 Pulse Oximetry 98 96 Intake & Output 06/30/18 07/01/18 07/01/18 18:59 06:59 18:59 Weight 91.4 kg Other: # Voids 3 3 Laboratory Results - last 24 hr 06/30/18 06/30/18 07/01/18 17:11 22:23 06:50 WBC 4.4 RBC 5.08 Hgb 13.6 Hct 41.3 MCV 81.2 MCH 26.7 L MCHC 32.9 RDW 15.4 Plt Count 244 MPV 7.9 Neut % (Auto) 37.9 Lymph % (Auto) 50.2 H [place] % (Auto) 10.9 H Eos % (Auto) 0.5 Baso % (Auto) 0.5 Neut # (Auto) 1.7 L Lymph # (Auto) 2.2 [place] # (Auto) 0.5 Eos # (Auto) 0.0 Baso # (Auto) 0.0 WBC Differential . Differential Comment Auto diff final Sodium Potassium Chloride Carbon Dioxide Anion Gap BUN Creatinine Estimated GFR POC Glucose 103 93 Random Glucose Calcium 07/01/18 07/01/18 07/01/18 06:50 07:25 11:58 WBC RBC Hgb Hct MCV MCH MCHC RDW Plt Count MPV Neut % (Auto) Lymph % (Auto) [place] % (Auto) Eos % (Auto) Baso % (Auto) Neut # (Auto) Lymph # (Auto) [place] # (Auto) Eos # (Auto) Baso # (Auto) WBC Differential Differential Comment Sodium 143 Potassium 3.7 Chloride 111 H Carbon Dioxide 26.9 Anion Gap 5 BUN 12 Creatinine 0.79 Estimated GFR Greater than 89 POC Glucose 107 87 Random Glucose 95 Calcium 8.7 Impressions Chest X-Ray 06/29/18 18:01 CONCLUSION: Left lower lobe infiltrate with questionable tiny left effusion. Head CT 06/29/18 18:01 CONCLUSION: 1. Small area of decreased density involving the left parietal lobe as detailed above. I cannot exclude a small area of acute infarction. Consider MRI to further assess. . Head MRI 06/29/18 18:34 CONCLUSION: 1. Prominent periventricular and deep white matter signal abnormalities most consistent with ischemic white matter demyelination. This is more than expected for patient's age. 2. Otherwise, no acute abnormality. Specifically, no evidence for acute infarction, hemorrhage or mass as questioned. Head MRA 06/29/18 18:34 CONCLUSION: 1. Occlusion of the left internal carotid artery. 2. Reconstitution of the left anterior circulation likely via the anterior communicating artery and hypoplastic left posterior communicating artery. The left A1 segment is also hypoplastic. Despite this, the left MCA branches appear patent without evidence for MCA occlusion. Neck MRA 06/29/18 18:34 CONCLUSION: 1. Occluded left ICA at the level of the skull base. 2. Suspected high-grade stenosis of the proximal right ICA. 3. Patent vertebral arteries bilaterally. 4. Multiple thyroid nodules particularly on the right. Percent stenosis is calculated using the diameter of the stenotic region over the diameter of the normal distal internal carotid artery
--- NOTE | 2018-07-01 15:21 | ECHRPT ---
Indication: hypertensive heart disease CONCLUSIONS Normal left ventricular size. Wall thickness is normal. The left ventricular systolic function is normal with an estimated ejection fraction in the range of 60-65%. The estimated pulmonary arterial pressure is 29 mmHg. There is trace tricuspid valve regurgitation. BP: / HR: Rhythm: MEASUREMENTS (Male / Female) Normal Values Technical Quality: 2D ECHO LV Diastolic Diameter PLAX 4.1 cm 4.2 - 5.9 / 3.9 - 5.3 cm LV Systolic Diameter PLAX 2.9 cm IVS Diastolic Thickness 1.0 cm 0.6 - 1.0 / 0.6 - 0.9 cm LVPW Diastolic Thickness 1.2 cm 0.6 - 1.0 / 0.6 - 0.9 cm LV Relative Wall Thickness 0.5 RV Internal Dim ED PLAX 3.1 cm LVOT Diameter 1.8 cm Aortic Root Diameter 2.2 cm LA Systolic Diameter LX 2.7 cm 3.0 - 4.0 / 2.7 - 3.8 cm M-MODE Aortic Root Diameter MM 2.7 cm LA Systolic Diameter MM 3.3 cm LA Ao Ratio MM 1.2 AV Cusp Separation MM 2.1 cm DOPPLER AV Peak Velocity 124.0 cm/s AV Peak Gradient 6.2 mmHg LVOT Peak Velocity 85.9 cm/s LVOT Peak Gradient 3.0 mmHg AV Area Cont Eq pk 1.7 cm Mitral E Point Velocity 75.0 cm/s Mitral A Point Velocity 76.5 cm/s Mitral E to A Ratio 1.0 LV E' Lateral Velocity 6.8 cm/s Mitral E to LV E' Lateral Ratio 11.0 LV E' Septal Velocity 7.7 cm/s Mitral E to LV E' Septal Ratio 9.7 TR Peak Velocity 219.0 cm/s TR Peak Gradient 19.2 mmHg Right Atrial Pressure 10.0 mmHg Pulmonary Artery Systolic Pressu 29.2 mmHg Right Ventricular Systolic Press 29.2 mmHg PV Peak Velocity 111.0 cm/s PV Peak Gradient 4.9 mmHg FINDINGS LEFT VENTRICLE Normal left ventricular size. Wall thickness is normal. The left ventricular systolic function is normal with an estimated ejection fraction in the range of 60-65%. RIGHT VENTRICLE Normal right ventricular size and systolic function. LEFT ATRIUM The left atrial size is normal. RIGHT ATRIUM The right atrial size is normal. ATRIAL SEPTUM Normal atrial septal thickness without atrial level shunting by limited color doppler interrogation. AORTA The aortic root and proximal ascending aorta are normal in size on limited imaging. MITRAL VALVE Structurally normal mitral valve. No mitral valve stenosis or regurgitation. AORTIC VALVE Trileaflet aortic valve. No aortic valve stenosis or regurgitation. TRICUSPID VALVE The estimated pulmonary arterial pressure is 29 mmHg. There is trace tricuspid valve regurgitation. PULMONARY VALVE No pulmonary valve regurgitation or stenosis. VESSELS The inferior vena cava is normal in size. PERICARDIUM No pericardial effusion. Michel Díaz MD (Electronically Signed) Final Date:01 July 2018 15:20
--- NOTE | 2018-07-01 17:31 | P.PNIM ---
Subjective Interval history: Patient seen ambulating in room. Tells me that she is bored. No chest pain or shortness of breath. No dizziness, headache or syncope. Tolerating meals well Physical Exam Vital signs: Last Vital Signs Temp 98.1 F 07/01/18 15:50 Pulse 55 L 07/01/18 15:50 Resp 20 07/01/18 15:50 BP 126/58 L 07/01/18 15:50 Pulse Ox 98 07/01/18 15:50 Intake & Output 06/29/18 06/30/18 07/01/18 07/02/18 06:59 06:59 06:59 06:59 Weight 95.254 kg 91.4 kg Narrative: GENERAL: Well-nourished, well-developed adult female in no obvious distress. SKIN: Warm and dry. HEAD: Atraumatic. Normocephalic. CARDIOVASCULAR: Regular rate and rhythm. RESPIRATORY: No accessory muscle use. Clear to auscultation. Breath sounds equal bilaterally. GASTROINTESTINAL: Abdomen soft, non-tender, non-distended. Positive bowel sounds. MUSCULOSKELETAL: Extremities without clubbing, cyanosis, or edema. No obvious deformities. NEUROLOGICAL: Awake and alert. No obvious cranial nerve deficits. Motor grossly within normal limits. Normal speech. PSYCHIATRIC: Appropriate mood and affect; insight and judgment good. Results Labs CBC & Chem 7: 07/01/18 06:50 07/01/18 06:50 Assessment and Plan Plan Patient is a pleasant 58 year old female with a past medical history significant for non insulin dependent type II diabetes mellitus, hypertension and tobacco use. She presented to the ED for evaluation and management of her blood pressure that was noted to be elevated during her pain management office appointment. Patient ran out of her blood pressure medications 2 weeks ago. Hypertensive urgency -pt ran out of her blood pressure medication metoprolol tartrate 25 mg PO BID -given Labetalol and Amlodipine in ED with improvement in her B/P -Angioedema with Lisinopril use in the past -continue Metoprolol, add Amlodipine if indicated -CT head w/ small area of decreased density involving the left parietal lobe, unable to exclude acute infarction. MRI brain w/ findings c/w ischemic white matter demyelination but no evidence for acute infarction. -monitor vital signs per unit protocol Probable CVA -see imaging findings as noted -MRI head w/ no evidence for acute infarction, however, findings c/w ischemic white matter demyelination -Neurology consulted -PT eval/ treat Carotid artery occlusion -MRA neck showing occluded left ICA at the level of the skull base and suspected high-grade stenosis of the proximal right ICA -Vascular surgery consulted for evaluation and treatment recommendations; plan carotid enterectomy 07/03 Type II non insulin dependent diabetes mellitus -check A1c -5.8. Well controlled -hold Metformin -accuchecks ac/hs with SSI -ADA diet Hypokalemia -K 3.3 at time of admission -recheck K level, replace if indicated -monitor Incidental finding of multiple thyroid nodules particularly on the right -findings discussed with patient -check TSH, free T4 -normal. Patient should follow-up with bank teller as outpatient. Questionable MS -pt states she was previously told she may have MS but did not follow up for second opinion MDM: self Code: Full GI ppx: not indicated DVT ppx: SCD's, ambulatory Dispo: Home once medically optimized Discussed Condition With: RN, patient Progress Note: Quality VTE Deep Vein Thrombosis/Pulmonary Embolism Present on Admission: No
[2018-07-01] MEDS: Acetaminophen 325 MG Tablet PO PRN (22:15)
[2018-07-02] MEDS: Senna/Docusate Sodium 8.6/50 MG Tablet PO SCH ×3 (00:07→20:10)
--- NOTE | 2018-07-02 06:20 | P.PNVS ---
Subjective Subjective/Hospital Course: Referral Received Full consult dictated Patient has left internal carotid artery occlusion and a tight high-grade stenosis of the right internal carotid artery and this should be surgically addressed at this admission provided patient's cardiac status is adequate and acceptable risk for surgery Echo pending Tentatively patient will be scheduled for right internal carotid endarterectomy on Tuesday J 07/01/2018 This is a 58-year-old female with uncontrolled hypertension and poorly controlled diabetes mellitus, presents to the hospital with symptoms of dizziness, headache and some blurring of vision. The patient states that she did not lose the vision in the eye; however, it became blurry on several occasions in the left eye in the last 48 hours. She was evaluated, and was found to have systolic blood pressure of 220/180 and admitted for malignant hypertension and therapy. She underwent CT of the head and MRI, which revealed essentially left internal carotid artery occlusion at the level of the foramen rotundum of the skull and on the right side, high-grade , about 80% stenosis of the carotid artery at the bifurcation, in addition, the patient has incomplete posterior communicating artery. I reviewed laboratory and diagnostic procedures. This lady has had an MRA/MRI that does not reveal an acute stroke; however ischemic demyelination is noted in the periventricular areas. MRA of the neck unfortunately reveals left internal carotid artery occlusion and a high-grade right carotid artery stenosis. Based on all of the above, it is my recommendation that the patient should have right carotid endarterectomy at this admission. She will be placed on Plavix. She should have a short cardiac workup preop, considering that there is a high likelihood that the patient has also coexisting coronary artery disease, at least an echo should be performed and if abnormal, the patient may need a further studies. Nonetheless, carotid artery is nearly occluded on the right side and with incomplete posterior communicating artery. I am not quite sure what is supplying the left side at this time, but nonetheless taking all of it into account, the patient should have a right carotid endarterectomy at this admission. We will prepare the patient best as we can, I explained this to the patient in detail, and proceed with surgery, likely Tuesday. 07/02/2018 Patient with left internal carotid artery occlusion at the base of the skull level and critical stenosis of the right internal carotid artery At this point patient has undergone basic workup including echocardiogram which reveals about 60-65% ejection fraction. Based on the history and physical exam as well as stress test 6 this patient has a moderate risk surgical candidate for vascular surgery including carotid endarterectomy for she definitely has underlying coronary artery disease although with good cardiac function. At this point based on the occlusion of the left side and stenosis of the right side I do not believe that further delay is warranted and patient will be scheduled for right carotid endarterectomy. I have explained the risks and benefits to the patient, including the risk of myocardial infarction and intraoperative or postoperative strokes. All things equal will proceed with surgery for right carotid endarterectomy Tuesday Objective Vital Signs / I&O: Vital Signs 07/01/18 08:00 07/01/18 08:25 07/01/18 12:15 Temperature 98.4 F 98.6 F Pulse Rate 53 L 62 58 L Respiratory Rate 20 20 Blood Pressure 147/66 H 126/63 Pulse Oximetry 98 98 96 07/01/18 15:50 07/01/18 20:00 07/02/18 00:00 Temperature 98.1 F 98.2 F 98.1 F Pulse Rate 55 L 57 L 51 L Respiratory Rate 20 18 18 Blood Pressure 126/58 L 130/66 162/68 H Pulse Oximetry 98 96 96 07/02/18 04:00 Temperature 98.3 F Pulse Rate 54 L Respiratory Rate 18 Blood Pressure 141/67 H Pulse Oximetry 100 Intake & Output 07/01/18 07/01/18 07/02/18 06:59 18:59 06:59 Weight 91.4 kg 91.6 kg Other: # Voids 3 3 3 Date of Last Bowel Movement 07/01/18 # Bowel Movements 1 Laboratory Results - last 24 hr 07/01/18 07/01/18 07/01/18 06:50 06:50 07:25 WBC 4.4 RBC 5.08 Hgb 13.6 Hct 41.3 MCV 81.2 MCH 26.7 L MCHC 32.9 RDW 15.4 Plt Count 244 MPV 7.9 Neut % (Auto) 37.9 Lymph % (Auto) 50.2 H [place] % (Auto) 10.9 H Eos % (Auto) 0.5 Baso % (Auto) 0.5 Neut # (Auto) 1.7 L Lymph # (Auto) 2.2 [place] # (Auto) 0.5 Eos # (Auto) 0.0 Baso # (Auto) 0.0 WBC Differential . Differential Comment Auto diff final Sodium 143 Potassium 3.7 Chloride 111 H Carbon Dioxide 26.9 Anion Gap 5 BUN 12 Creatinine 0.79 Estimated GFR Greater than 89 POC Glucose 107 Random Glucose 95 Calcium 8.7 07/01/18 07/01/18 07/01/18 11:58 17:27 22:10 WBC RBC Hgb Hct MCV MCH MCHC RDW Plt Count MPV Neut % (Auto) Lymph % (Auto) [place] % (Auto) Eos % (Auto) Baso % (Auto) Neut # (Auto) Lymph # (Auto) [place] # (Auto) Eos # (Auto) Baso # (Auto) WBC Differential Differential Comment Sodium Potassium Chloride Carbon Dioxide Anion Gap BUN Creatinine Estimated GFR POC Glucose 87 99 127 H Random Glucose Calcium 07/02/18 04:00 WBC RBC Hgb Hct MCV MCH MCHC RDW Plt Count MPV Neut % (Auto) Lymph % (Auto) [place] % (Auto) Eos % (Auto) Baso % (Auto) Neut # (Auto) Lymph # (Auto) [place] # (Auto) Eos # (Auto) Baso # (Auto) WBC Differential Differential Comment Sodium Potassium Chloride Carbon Dioxide Anion Gap BUN Creatinine Estimated GFR POC Glucose 91 Random Glucose Calcium
[2018-07-02] MEDS: Insulin NovoLOG Aspart Correctional Sugar Inj SQ SCH ×4 (08:07→20:30)
[2018-07-02] MEDS: Enoxaparin Inj 40 MG/0.4 ML Syringe SQ SCH (09:37)
[2018-07-02] MEDS: Metoprolol Tartrate 25 MG Tablet PO SCH ×2 (09:38→20:10)
[2018-07-02] MEDS: amLODIPine 5 MG Tablet PO SCH (09:38)
--- NOTE | 2018-07-02 16:00 | P.PNIM ---
Subjective Interval history: Patient seen lying in bed. No new concerns or complaints. Awaiting intervention tomorrow. Nursing reports no adverse events. Physical Exam Vital signs: Last Vital Signs Temp 98.0 F 07/02/18 12:00 Pulse 52 L 07/02/18 12:00 Resp 17 07/02/18 12:00 BP 148/75 H 07/02/18 12:00 Pulse Ox 98 07/02/18 12:00 Intake & Output 06/30/18 07/01/18 07/02/18 07/03/18 06:59 06:59 06:59 06:59 Intake Total 200 / 200 Balance 200 / 200 Weight 95.254 kg 91.4 kg 91.6 kg Narrative: GENERAL: Well-nourished, well-developed adult female in no obvious distress. SKIN: Warm and dry. HEAD: Atraumatic. Normocephalic. CARDIOVASCULAR: Regular rate and rhythm. RESPIRATORY: No accessory muscle use. Clear to auscultation. Breath sounds equal bilaterally. GASTROINTESTINAL: Abdomen soft, non-tender, non-distended. Positive bowel sounds. MUSCULOSKELETAL: Extremities without clubbing, cyanosis, or edema. No obvious deformities. NEUROLOGICAL: Awake and alert. No obvious cranial nerve deficits. Motor grossly within normal limits. Normal speech. PSYCHIATRIC: Appropriate mood and affect; insight and judgment good. Results Labs CBC & Chem 7: 07/01/18 06:50 07/01/18 06:50 Assessment and Plan Plan Patient is a pleasant 58 year old female with a past medical history significant for non insulin dependent type II diabetes mellitus, hypertension and tobacco use. She presented to the ED for evaluation and management of her blood pressure that was noted to be elevated during her pain management office appointment. Patient ran out of her blood pressure medications 2 weeks ago. Hypertensive urgency -pt ran out of her blood pressure medication metoprolol tartrate 25 mg PO BID -given Labetalol and Amlodipine in ED with improvement in her B/P -Angioedema with Lisinopril use in the past -continue Metoprolol, add Amlodipine if indicated -CT head w/ small area of decreased density involving the left parietal lobe, unable to exclude acute infarction. MRI brain w/ findings c/w ischemic white matter demyelination but no evidence for acute infarction. -monitor vital signs per unit protocol Probable CVA -see imaging findings as noted -MRI head w/ no evidence for acute infarction, however, findings c/w ischemic white matter demyelination -Neurology consulted -PT eval/ treat Carotid artery occlusion -MRA neck showing occluded left ICA at the level of the skull base and suspected high-grade stenosis of the proximal right ICA -Vascular surgery consulted for evaluation and treatment recommendations; plan carotid enterectomy 07/03 Type II non insulin dependent diabetes mellitus -check A1c -5.8. Well controlled -hold Metformin -accuchecks ac/hs with SSI -ADA diet Hypokalemia -K 3.3 at time of admission -recheck K level, replace if indicated -monitor Incidental finding of multiple thyroid nodules particularly on the right -findings discussed with patient -check TSH, free T4 -normal. 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 Questionable MS -pt states she was previously told she may have MS but did not follow up for second opinion MDM: self Code: Full GI ppx: not indicated DVT ppx: SCD's, ambulatory Dispo: Home once medically optimized and cleared by surgery Discussed Condition With: RN, patient Progress Note: Quality VTE Deep Vein Thrombosis/Pulmonary Embolism Present on Admission: No
[2018-07-02] MEDS ORDERED: Metoprolol Tartrate 25 MG Tablet PO SCH (18:33)
[2018-07-02] MEDS ORDERED: Chlorhexidine Gluconate 2% 1 Pack (2 Cloths) TOPICAL ONE (18:33)
[2018-07-02] MEDS ORDERED: Sodium Chlor 0.9% Inj 500 ML IV.SIG SCH (19:00)
[2018-07-03] MEDS: Insulin NovoLOG Aspart Correctional Sugar Inj SQ SCH ×3 (08:24→20:30)
[2018-07-03] MEDS: Enoxaparin Inj 40 MG/0.4 ML Syringe SQ SCH (09:25)
[2018-07-03] MEDS: amLODIPine 5 MG Tablet PO SCH (09:28)
[2018-07-03] MEDS: Metoprolol Tartrate 25 MG Tablet PO SCH ×2 (09:29→22:05)
[2018-07-03] MEDS: Senna/Docusate Sodium 8.6/50 MG Tablet PO SCH ×2 (09:31→20:48)
[2018-07-03] MEDS ORDERED: Protamine Sulfate Inj 50 MG/5 ML Vial ONE (12:32)
[2018-07-03] MEDS ORDERED: Lidocaine 1% Inj 50 ML Vial ONE (12:32)
[2018-07-03] MEDS ORDERED: Heparin 10,000 UNITS/10 ML Vial (for IV use) ONE (12:32)
[2018-07-03] MEDS ORDERED: Heparin - SQ 10,000 UNITS/ML Vial ONE (12:32)
[2018-07-03] MEDS ORDERED: ceFAZolin Inj 500 MG Vial ONE (12:33)
[2018-07-03] MEDS ORDERED: fentaNYL Citrate Inj 100 MCG/2 ML Ampul ONE ×2 (15:02→16:40)
[2018-07-03] MEDS ORDERED: *morphine SULFATE 10 MG/ML PERIprocedure ONLY ONE (16:46)
[2018-07-03] MEDS ORDERED: Morphine Sulfate Inj 2 MG/ML Vial IV.PUSH PRN (18:11)
--- NOTE | 2018-07-03 18:12 | P.PNIM ---
Subjective Interval history: Patient seen lying in bed prior to surgery. Says she feels good and is looking forward to getting the surgery completed and going home. No fever or chills. No chest pain or shortness of breath. No nausea vomiting or diarrhea. Physical Exam Vital signs: Last Vital Signs Temp 97.8 F 07/03/18 17:30 Pulse 61 07/03/18 17:40 Resp 18 07/03/18 17:40 BP 137/64 07/03/18 17:30 Pulse Ox 95 07/03/18 17:40 Intake & Output 07/01/18 07/02/18 07/03/18 07/04/18 06:59 06:59 06:59 06:59 Intake Total 200 / 200 442 / 442 1500 / 1500 Output Total 160 / 160 Balance 200 / 200 442 / 442 1340 / 1340 Weight 91.4 kg 91.6 kg 90.5 kg Narrative: GENERAL: Well-nourished, well-developed adult female in no obvious distress. SKIN: Warm and dry. HEAD: Atraumatic. Normocephalic. CARDIOVASCULAR: Regular rate and rhythm. RESPIRATORY: No accessory muscle use. Clear to auscultation. Breath sounds equal bilaterally. GASTROINTESTINAL: Abdomen soft, non-tender, non-distended. Positive bowel sounds. MUSCULOSKELETAL: Extremities without clubbing, cyanosis, or edema. No obvious deformities. NEUROLOGICAL: Awake and alert. No obvious cranial nerve deficits. Motor grossly within normal limits. Normal speech. PSYCHIATRIC: Appropriate mood and affect; insight and judgment good. Results Labs CBC & Chem 7: 07/01/18 06:50 07/01/18 06:50 Assessment and Plan Plan Patient is a pleasant 58 year old female with a past medical history significant for non insulin dependent type II diabetes mellitus, hypertension and tobacco use. She presented to the ED for evaluation and management of her blood pressure that was noted to be elevated during her pain management office appointment. Patient ran out of her blood pressure medications 2 weeks ago. Hypertensive urgency -pt ran out of her blood pressure medication metoprolol tartrate 25 mg PO BID -given Labetalol and Amlodipine in ED with improvement in her B/P -Angioedema with Lisinopril use in the past -continue Metoprolol, add Amlodipine if indicated -CT head w/ small area of decreased density involving the left parietal lobe, unable to exclude acute infarction. MRI brain w/ findings c/w ischemic white matter demyelination but no evidence for acute infarction. -monitor vital signs per unit protocol Probable CVA -see imaging findings as noted -MRI head w/ no evidence for acute infarction, however, findings c/w ischemic white matter demyelination -Neurology consulted -PT eval/ treat Carotid artery occlusion -MRA neck showing occluded left ICA at the level of the skull base and suspected high-grade stenosis of the proximal right ICA -Vascular surgery consulted for evaluation and treatment recommendations; plan carotid enterectomy 07/03 Type II non insulin dependent diabetes mellitus -check A1c -5.8. Well controlled -hold Metformin -accuchecks ac/hs with SSI -ADA diet Hypokalemia -K 3.3 at time of admission -recheck K level, replace if indicated -monitor Incidental finding of multiple thyroid nodules particularly on the right -findings discussed with patient -check TSH, free T4 -normal. 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 Questionable MS -pt states she was previously told she may have MS but did not follow up for second opinion MDM: self Code: Full GI ppx: not indicated DVT ppx: SCD's, ambulatory Dispo: Home once medically optimized and cleared by surgery Discussed Condition With: RN, patient Progress Note: Quality VTE Deep Vein Thrombosis/Pulmonary Embolism Present on Admission: No
[2018-07-03] MEDS ORDERED: Morphine Sulfate Inj 2 MG/ML Vial ONE (18:19)
--- NOTE | 2018-07-03 20:03 | MP ---
cc: Addy Mae MD DATE OF OPERATION: 07/03/2018 PREOPERATIVE DIAGNOSIS: Left carotid artery occlusion, right carotid artery critical stenosis, aneurysm of the right carotid artery. POSTOPERATIVE DIAGNOSIS: Left carotid artery occlusion, right carotid artery critical stenosis, aneurysm of the right carotid artery. OPERATIVE PROCEDURE: Right carotid endarterectomy, resection of aneurysm. SURGEON: Addy Mae MD ANESTHESIA: General. ESTIMATED BLOOD LOSS: 150 mL INDICATIONS: The patient was prepped and draped in the usual fashion. A presternocleidomastoid incision was made and deepened down through the platysma into the carotid sheath. The common carotid, internal and external carotid artery was isolated through sharp and blunt dissection. Hypoglossal nerve was carefully identified and preserved. Weitlaner and upper arm iron campus interviews intern retractors were placed. The patient was given 5000 units of heparin. Umbilical tape with Rumel tourniquet was placed around the common carotid, internal and external carotid artery loosely and then the internal carotid artery was clamped with a bulldog, the common carotid artery with angled DeBakey and the external carotid artery was cinched down with a tourniquet. Vessels were opened longitudinally from the common into the internal carotid artery with Mills scissors. There is a huge plaque sitting in the vessel. Part of it is aneurysmal content. The clean part of the vessel was now reached proximally and then a 12 Aptos shunt was placed and blood flow immediately reestablished considering that the patient has no left carotid artery at this time to establish the flow is at 22 seconds from the clamp to the Aptos shunt. With a Slidell dissector, the large plaque in the common carotid artery and internal carotid artery was dissected in the medial plane and removed. Small debris is removed, it is noted that the patient has sort of aneurysmal internal carotid artery just off the bifurcation that measures over 15 mm in diameter and then tapers down higher up. Part of this was resected and then with Wiksels and heparinized saline, small debris was removed. The internal carotid artery intima was checked and was nicely adherent. The vessel was now closed primarily with running 5-0 Prolene considering the large size of the vessel and prior to completion of the repair, the Aptos shunt is removed. Repair completed and then the vessels were released in the usual order and fashioned, preventing embolization to the brain. Flow was checked with Doppler and it is brisk and meticulous hemostasis obtained. A piece of Surgicel placed over the vessel. The patient was given 15 units of protamine and a 7 flat ISHA drain placed over the vessel. Incision closed in layers with 0 Vicryl and 4-0 Monocryl subcuticular stitch. The patient tolerated the procedure well. At the end of the procedure, the patient was taken to the recovery room and woke up neurologically fully intact as before. Addy Mae MD SJ/ct , 06:33 PM , 06:41 PM
[2018-07-03] MEDS ORDERED: hydrALAZINE HCl Inj 20 MG/ML Vial IV.PUSH ONE (20:19)
[2018-07-04] MEDS: Metoprolol Tartrate 25 MG Tablet PO SCH ×3 (08:04→22:09)
[2018-07-04] MEDS: amLODIPine 5 MG Tablet PO SCH (08:04)
[2018-07-04] MEDS: Enoxaparin Inj 40 MG/0.4 ML Syringe SQ SCH (08:04)
[2018-07-04] MEDS: Senna/Docusate Sodium 8.6/50 MG Tablet PO SCH ×2 (08:04→22:09)
--- NOTE | 2018-07-04 09:38 | P.PNIM ---
Subjective Interval history: Patient reports she is feeling okay except for mild discomfort at the surgical site. Blood pressure uncontrolled. Discussed with RN and vascular surgeon Dr. Aburto Received metoprolol earlier this morning due to low heart rate. Heart rate is better currently. No neurological symptoms Physical Exam Vital signs: Last Vital Signs Temp 98.4 F 07/04/18 08:00 Pulse 60 07/04/18 08:00 Resp 17 07/04/18 08:00 BP 177/74 H 07/04/18 07:44 Pulse Ox 97 07/04/18 08:00 Intake & Output 07/02/18 07/03/18 07/04/18 07/05/18 06:59 06:59 06:59 06:59 Intake Total 200 / 200 442 / 442 1500 / 1500 Output Total 210 / 210 Balance 200 / 200 442 / 442 1290 / 1290 Weight 91.6 kg 90.5 kg 93.4 kg Narrative: GENERAL: Well-nourished, well-developed adult female in no obvious distress. SKIN: Dressing on the right side of the neck appear intact. HEAD: Atraumatic. Normocephalic. CARDIOVASCULAR: Regular rate and rhythm. RESPIRATORY: No accessory muscle use. Clear to auscultation. Breath sounds equal bilaterally. GASTROINTESTINAL: Abdomen soft, non-tender, non-distended. Positive bowel sounds. MUSCULOSKELETAL: Extremities without clubbing, cyanosis, or edema. No obvious deformities. NEUROLOGICAL: Awake and alert. No obvious cranial nerve deficits. Motor grossly within normal limits. Normal speech. PSYCHIATRIC: Appropriate mood and affect; insight and judgment good. Results Labs CBC & Chem 7: 07/01/18 06:50 07/01/18 06:50 Assessment and Plan Plan 58 year old female with a past medical history significant for non insulin dependent type II diabetes mellitus, hypertension and tobacco use. She presented to the ED for evaluation and management of her blood pressure that was noted to be elevated during her pain management office appointment. Patient reportedly ran out of her blood pressure medications 2 weeks prior to presentation. Hypertensive urgency -pt ran out of her blood pressure medication metoprolol tartrate 25 mg PO BID -History of angioedema with Lisinopril use in the past -Blood pressure uncontrolled. Increase amlodipine to 10 mg daily. Continue metoprolol 25 mg twice daily. She will receive a dose this morning. Add clonidine as needed. Pain control. -CT head w/ small area of decreased density involving the left parietal lobe, unable to exclude acute infarction. MRI brain w/ findings c/w ischemic white matter demyelination but no evidence for acute infarction. -monitor vital signs per unit protocol Probable CVA -see imaging findings as noted -MRI head w/ no evidence for acute infarction, however, findings c/w ischemic white matter demyelination -Right carotid artery stenosis. Patient is status post right endarterectomy. -Appreciate neurology input. On aspirin. Plavix added. - Doing fairly well from our neurological standpoint. Carotid artery stenosis -MRA neck showing occluded left ICA at the level of the skull base and suspected high-grade stenosis of the proximal right ICA -Vascular surgery following the patient underwent right carotid endarterectomy on 07/04/18. Type II non insulin dependent diabetes mellitus -check A1c -5.8. Well controlled -hold Metformin -accuchecks ac/hs with SSI -ADA diet Hypokalemia -K 3.3 at time of admission -recheck K level, replace if indicated -monitor Incidental finding of multiple thyroid nodules particularly on the right -findings discussed with patient -check TSH, free T4 -normal. 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 Questionable MS -pt states she was previously told she may have MS but did not follow up for second opinion Dispo: Transfer to medical floor. Need better blood pressure control. Anticipate discharge home in the next 24-48 hours. Discussed Condition With: RN, patient Progress Note: Quality VTE Deep Vein Thrombosis/Pulmonary Embolism Present on Admission: No
[2018-07-04] MEDS ORDERED: amLODIPine 5 MG Tablet PO ONE (10:00)
[2018-07-04 11:04] LABS: Anion Gap 8 meq/L (5-15); Blood Urea Nitrogen 16 mg/dL (7-18); Calcium 8.3 mg/dL (8.5-10.1); Carbon Dioxide 22.6 meq/L (21.0-32.0); Chloride 107 meq/L (98-107); Glomerular Filtration Rate Greater Than 89 mL/min (>89); Glucose,Random 95 mg/dL (74-106); Potassium 3.7 meq/L (3.5-5.1); Sodium 138 meq/L (136-145)
[2018-07-04] MEDS: Insulin NovoLOG Aspart Correctional Sugar Inj SQ SCH ×5 (13:30→22:45)
--- NOTE | 2018-07-04 15:25 | P.PNVS ---
Subjective Subjective/Hospital Course: Referral Received Full consult dictated Patient has left internal carotid artery occlusion and a tight high-grade stenosis of the right internal carotid artery and this should be surgically addressed at this admission provided patient's cardiac status is adequate and acceptable risk for surgery Echo pending Tentatively patient will be scheduled for right internal carotid endarterectomy on Tuesday J 07/01/2018 This is a 58-year-old female with uncontrolled hypertension and poorly controlled diabetes mellitus, presents to the hospital with symptoms of dizziness, headache and some blurring of vision. The patient states that she did not lose the vision in the eye; however, it became blurry on several occasions in the left eye in the last 48 hours. She was evaluated, and was found to have systolic blood pressure of 220/180 and admitted for malignant hypertension and therapy. She underwent CT of the head and MRI, which revealed essentially left internal carotid artery occlusion at the level of the foramen rotundum of the skull and on the right side, high-grade , about 80% stenosis of the carotid artery at the bifurcation, in addition, the patient has incomplete posterior communicating artery. I reviewed laboratory and diagnostic procedures. This lady has had an MRA/MRI that does not reveal an acute stroke; however ischemic demyelination is noted in the periventricular areas. MRA of the neck unfortunately reveals left internal carotid artery occlusion and a high-grade right carotid artery stenosis. Based on all of the above, it is my recommendation that the patient should have right carotid endarterectomy at this admission. She will be placed on Plavix. She should have a short cardiac workup preop, considering that there is a high likelihood that the patient has also coexisting coronary artery disease, at least an echo should be performed and if abnormal, the patient may need a further studies. Nonetheless, carotid artery is nearly occluded on the right side and with incomplete posterior communicating artery. I am not quite sure what is supplying the left side at this time, but nonetheless taking all of it into account, the patient should have a right carotid endarterectomy at this admission. We will prepare the patient best as we can, I explained this to the patient in detail, and proceed with surgery, likely Tuesday. 07/02/2018 Patient with left internal carotid artery occlusion at the base of the skull level and critical stenosis of the right internal carotid artery At this point patient has undergone basic workup including echocardiogram which reveals about 60-65% ejection fraction. Based on the history and physical exam as well as stress test 6 this patient has a moderate risk surgical candidate for vascular surgery including carotid endarterectomy for she definitely has underlying coronary artery disease although with good cardiac function. At this point based on the occlusion of the left side and stenosis of the right side I do not believe that further delay is warranted and patient will be scheduled for right carotid endarterectomy. I have explained the risks and benefits to the patient, including the risk of myocardial infarction and intraoperative or postoperative strokes. All things equal will proceed with surgery for right carotid endarterectomy Tuesday07/04/2018 Patient is status post right carotid endarterectomy for critical stenosis of the right internal carotid artery and an aneurysm of the right internal carotid artery in face of complete occlusion of left internal carotid artery Incisions clean and dry ISHA drainage is minimal and this one is removed Patient is neurologically stable Transfer to floor Control of hypertension Follow-up with my office in about 2 weeks In the meantime patient can wash the incision get it wet soap and water and leave open to air Objective Vital Signs / I&O: Vital Signs 07/03/18 16:38 07/03/18 17:06 07/03/18 17:15 Temperature 97.5 F L Pulse Rate 71 56 L 56 L Respiratory Rate 22 16 20 Blood Pressure 137/63 128/60 137/66 Pulse Oximetry 98 98 95 07/03/18 17:30 07/03/18 17:40 07/03/18 17:42 Temperature 97.8 F 98.4 F Pulse Rate 60 51 L Respiratory Rate 21 30 H Blood Pressure 137/64 144/65 H Pulse Oximetry 95 94 L 94 L 07/03/18 18:00 07/03/18 19:00 07/03/18 20:00 Temperature 97.5 F L Pulse Rate 55 L 51 L 60 Respiratory Rate 38 H 17 Blood Pressure Pulse Oximetry 97 98 97 07/03/18 20:23 07/03/18 21:00 07/03/18 21:10 Temperature Pulse Rate 53 L 60 58 L Respiratory Rate 18 15 22 Blood Pressure 178/77 H 99/48 L Pulse Oximetry 96 07/03/18 21:44 07/03/18 22:00 07/03/18 22:21 Temperature Pulse Rate 64 57 L Respiratory Rate 22 15 14 Blood Pressure 135/59 L Pulse Oximetry 99 98 07/03/18 22:44 07/03/18 23:00 07/03/18 23:44 Temperature Pulse Rate 63 59 L 59 L Respiratory Rate 21 14 16 Blood Pressure 133/63 139/63 Pulse Oximetry 98 97 96 07/04/18 00:00 07/04/18 00:44 07/04/18 01:00 Temperature 98.2 F Pulse Rate 60 62 73 Respiratory Rate 14 27 H 33 H Blood Pressure 146/66 H Pulse Oximetry 97 98 91 L 07/04/18 01:44 07/04/18 02:00 07/04/18 02:44 Temperature Pulse Rate 59 L 81 57 L Respiratory Rate 15 48 H 29 H Blood Pressure 146/66 H 148/65 H Pulse Oximetry 98 98 98 07/04/18 03:00 07/04/18 04:00 07/04/18 04:21 Temperature 98.1 F Pulse Rate 57 L 57 L 57 L Respiratory Rate 33 H 19 23 Blood Pressure 154/71 H Pulse Oximetry 97 96 96 07/04/18 04:44 07/04/18 05:00 07/04/18 05:44 Temperature Pulse Rate 55 L 61 63 Respiratory Rate 13 18 26 H Blood Pressure 155/69 H 182/94 H Pulse Oximetry 97 97 98 07/04/18 06:00 07/04/18 06:44 07/04/18 07:00 Temperature Pulse Rate 63 58 L 58 L Respiratory Rate 10 L 23 18 Blood Pressure 165/73 H Pulse Oximetry 98 97 97 07/04/18 07:44 07/04/18 08:00 07/04/18 08:44 Temperature 98.4 F Pulse Rate 59 L 60 69 Respiratory Rate 19 17 22 Blood Pressure 177/74 H 198/83 H Pulse Oximetry 98 97 98 07/04/18 09:44 07/04/18 10:00 07/04/18 10:25 Temperature Pulse Rate 71 71 72 Respiratory Rate 23 28 H 24 Blood Pressure 205/86 H 203/87 H Pulse Oximetry 99 97 99 07/04/18 10:44 07/04/18 11:44 07/04/18 12:00 Temperature 98.4 F Pulse Rate 74 60 61 Respiratory Rate 35 H 17 20 Blood Pressure 168/104 H 138/65 Pulse Oximetry 99 97 97 07/04/18 12:44 07/04/18 13:44 07/04/18 14:00 Temperature Pulse Rate 58 L 79 78 Respiratory Rate 20 36 H 31 H Blood Pressure 145/67 H 161/71 H Pulse Oximetry 97 96 98 Intake & Output 07/03/18 07/04/18 07/04/18 18:59 06:59 18:59 Intake Total 1500 / 1500 Output Total 160 / 160 50 / 50 Balance 1340 / 1340 -50 / -50 Weight 93.4 kg 93.4 kg Intake: Oral 0 / 0 Anesthesia Amount 1500 / 1500 Output: Estimated Blood Loss 150 / 150 Wound Drainage # 1 Right Neck ISHA Drain Other: # Voids 3 Date of Last Bowel Movement 07/02/18 07/02/18 07/02/18 Weight On Admission 99.5 kg Laboratory Results - last 24 hr 07/03/18 07/03/18 07/04/18 16:59 20:26 08:23 Sodium Potassium Chloride Carbon Dioxide Anion Gap BUN Creatinine Estimated GFR POC Glucose 115 H 134 H 93 Random Glucose Calcium 07/04/18 07/04/18 10:03 12:14 Sodium 138 Potassium 3.7 Chloride 107 Carbon Dioxide 22.6 Anion Gap 8 BUN 16 Creatinine 0.64 Estimated GFR Greater than 89 POC Glucose 157 H Random Glucose 95 Calcium 8.3 L
--- NOTE | 2018-07-05 01:01 | ECG ---
Date Performed: 07/03/2018 Time Performed: 16:52:12 PTAGE: 58 years EKG: SINUS BRADYCARDIA BORDERLINE ECG PREVIOUS TRACING : 06/29/2018 18.17 Compared to previous tracing, rate has decreased DOCTOR: Sean Miner Interpretating Date/Time 07/05/2018 00:59:38
[2018-07-05 07:51] LABS: Mean Corpuscular HGB Conc 33.5 % (32.0-36.0); Mean Corpuscular Hemoglobin 26.9 pg (27.0-34.0); Mean Corpuscular Volume 80.3 fL (80.0-100.0); Mean Platelet Volume 7.9 fL (7.0-11.0); Platelet Count 245 th/mm3 (150-450); Red Blood Count 4.85 mil/mm3 (4.00-5.30); Red Cell Distribution Width 15.2 % (11.6-17.2)
[2018-07-05 08:13] LABS: Anion Gap 5 meq/L (5-15); Blood Urea Nitrogen 11 mg/dL (7-18); Calcium 8.6 mg/dL (8.5-10.1); Carbon Dioxide 25.8 meq/L (21.0-32.0); Chloride 107 meq/L (98-107); Glomerular Filtration Rate Greater Than 89 mL/min (>89); Glucose,Random 92 mg/dL (74-106); Potassium 3.4 meq/L (3.5-5.1); Sodium 138 meq/L (136-145)
[2018-07-05 08:47] VITALS: RESP 18; TEMP 98.6
[2018-07-05] MEDS ORDERED: amLODIPine 5 MG Tablet PO SCH (09:00)
[2018-07-05] MEDS: Insulin NovoLOG Aspart Correctional Sugar Inj SQ SCH ×2 (09:37→12:02)
[2018-07-05] MEDS: Metoprolol Tartrate 25 MG Tablet PO SCH (09:38)
[2018-07-05] MEDS: Enoxaparin Inj 40 MG/0.4 ML Syringe SQ SCH (09:39)
[2018-07-05] MEDS: Senna/Docusate Sodium 8.6/50 MG Tablet PO SCH (09:40)
[2018-07-05 12:34] VITALS: BP 150/70; PULSE 66; O2SAT 98
--- NOTE | 2018-07-05 14:34 | P.DS ---
DS: Providers Date of admission: 06/29/18 19:53 Primary care physician: No Primary Care Physician Consults: 06/30/18 03:21 Consult to Vascular Surgery Routine Consulting Provider: Addy Mae Reason for Consultation: carotid artery stenosis Spoke with:: adding to Dr jimenez list - courtesy call in AM Date Notified:: 06/30/18 Time Notified:: 03:52 Ordering Provider: PAMELA 06/30/18 07:55 Consult to Neurology Routine Consulting Provider: Elena Ramsey Reason for Consultation: Carotid occlusion /stroke Notified:: Office Spoke with:: Shanna Date Notified:: 06/30/18 Time Notified:: 07:58 Ordering Provider: MEERA Brief History from admission: HPI as documented by the admitting physician: Patient is a 58 year old female with a past medical history significant for type II diabetes mellitus, non insulin dependent, chronic LBP, left knee pain and hypertension. She states she ran out of her blood pressure medications approximately 2 weeks. She followed up at her pain management clinic today for a refill of her medications and was told that her blood pressure was elevated. Patient states "my blood pressure [id number]." Patient was given a refill for her blood pressure medication and advised to follow up with her primary care provider. Patient went to the pharmacy to fill her prescriptions and states the pharmacist recommended for her to come to the emergency department for further evaluation and treatment. Patient's blood pressure in the ED was noted to be 180 /77. She received Labetalol and Amlodipine. Her blood pressure at time of evaluation is 140/65. Patient takes Metoprolol 25 mg PO BID at home. She reports history of angioedema with Lisinopril. Patient denies chest pain, shortness of breath, palpitations, lower extremity edema/pain or headache. She reports occasional feeling of dizziness but states that this is rare. Denies vision changes. No upper or lower extremity weakness, facial droop or speech changes. MRI brain findings consistent with ischemic white matter demyelination , more than expected for patient's age. Patient states she was previously told that she may have MS but doesn't believe she does and states she never followed up for a second opinion. MRA head shows occlusion of the left internal carotid artery. Neck MRA with occluded left ICA at the level of the skull base and suspected high grade stenosis of the proximal right ICA. Patient update on day of discharge: Patient reports she is feeling well today. She is anxious to go home. We discussed the need to follow-up outpatient with PCP for blood pressure monitoring and discussed outpatient follow-up with vascular surgery. Discharge planning discussed at length. DS: Summary 58 year old female with a past medical history significant for non insulin dependent type II diabetes mellitus, hypertension and tobacco use. She presented to the ED for evaluation and management of her blood pressure that was noted to be elevated during her pain management office appointment. Patient reportedly ran out of her blood pressure medications 2 weeks prior to presentation. Evaluation and treatment course detailed below. Hypertensive urgency -pt ran out of her blood pressure medication metoprolol tartrate 25 mg PO BID -History of angioedema with Lisinopril use in the past -Blood pressure medications were adjusted. She was started on amlodipine and dose titrated up to 10 mg daily. Metoprolol dose increased to 50 mg twice daily. Blood pressure better controlled. She is advised to follow-up outpatient with PCP for further titration of antihypertensives. Probable CVA -see imaging findings as noted -MRI head w/ no evidence for acute infarction, however, findings c/w ischemic white matter demyelination -Right carotid artery stenosis. Patient is status post right endarterectomy. -Appreciate neurology input. On aspirin. Plavix added. - Doing fairly well from neurological standpoint. Carotid artery stenosis -MRA neck showing occluded left ICA at the level of the skull base and suspected high-grade stenosis of the proximal right ICA -Vascular surgery followed the patient underwent right carotid endarterectomy on 07/04/18. Type II non insulin dependent diabetes mellitus -check A1c -5.8. Well controlled -hold Metformin -accuchecks ac/hs with SSI -ADA diet -Resume metformin on discharge. Incidental finding of multiple thyroid nodules particularly on the right -findings discussed with patient -check TSH, free T4 -normal. 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 Time Spent with Patient Total time spent providing and/or coordinating discharge services: Greater than 30 minutes Quality: VTE Deep Vein Thrombosis/Pulmonary Embolism Present on Admission: No Exam Narrative Exam Narrative: GENERAL: Well-nourished, well-developed adult female in no obvious distress. SKIN: Dressing on the right side of the neck appear intact. HEAD: Atraumatic. Normocephalic. CARDIOVASCULAR: Regular rate and rhythm. RESPIRATORY: No accessory muscle use. Clear to auscultation. Breath sounds equal bilaterally. GASTROINTESTINAL: Abdomen soft, non-tender, non-distended. Positive bowel sounds. MUSCULOSKELETAL: Extremities without clubbing, cyanosis, or edema. No obvious deformities. NEUROLOGICAL: Awake and alert. No obvious cranial nerve deficits. Motor grossly within normal limits. Normal speech. PSYCHIATRIC: Appropriate mood and affect; insight and judgment good. Results Completed studies during hospitalization: Pending at discharge 07/03/18 08:46 Surgical [PTH] Routine Labs on day of discharge: Labs from last 24 hours 07/05/18 07/05/18 07/05/18 11:59 09:37 06:54 WBC RBC Hgb Hct MCV MCH MCHC RDW Plt Count MPV Sodium 138 Potassium 3.4 L Chloride 107 Carbon Dioxide 25.8 Anion Gap 5 BUN 11 Creatinine 0.59 Estimated GFR Greater than 89 POC Glucose 95 126 H Random Glucose 92 Calcium 8.6 07/05/18 07/04/18 07/04/18 06:54 22:26 17:28 WBC 7.0 RBC 4.85 Hgb 13.0 Hct 39.0 MCV 80.3 MCH 26.9 L MCHC 33.5 RDW 15.2 Plt Count 245 MPV 7.9 Sodium Potassium Chloride Carbon Dioxide Anion Gap BUN Creatinine Estimated GFR POC Glucose 118 H 105 Random Glucose Calcium Impressions ITS Impressions Chest X-Ray 06/29/18 18:01 CONCLUSION: Left lower lobe infiltrate with questionable tiny left effusion. Head CT 06/29/18 18:01 CONCLUSION: 1. Small area of decreased density involving the left parietal lobe as detailed above. I cannot exclude a small area of acute infarction. Consider MRI to further assess. . Head MRI 06/29/18 18:34 CONCLUSION: 1. Prominent periventricular and deep white matter signal abnormalities most consistent with ischemic white matter demyelination. This is more than expected for patient's age. 2. Otherwise, no acute abnormality. Specifically, no evidence for acute infarction, hemorrhage or mass as questioned. Head MRA 06/29/18 18:34 CONCLUSION: 1. Occlusion of the left internal carotid artery. 2. Reconstitution of the left anterior circulation likely via the anterior communicating artery and hypoplastic left posterior communicating artery. The left A1 segment is also hypoplastic. Despite this, the left MCA branches appear patent without evidence for MCA occlusion. Neck MRA 06/29/18 18:34 CONCLUSION: 1. Occluded left ICA at the level of the skull base. 2. Suspected high-grade stenosis of the proximal right ICA. 3. Patent vertebral arteries bilaterally. 4. Multiple thyroid nodules particularly on the right. Percent stenosis is calculated using the diameter of the stenotic region over the diameter of the normal distal internal carotid artery Discharge Plan Discharge Disposition Patient Disposition: 01 Discharge Home Discharge Condition Condition: Stable Discharge Order Discharge Orders: Discharge Order (Routine); Ordered 07/05/18 Ordered By: Eyal Marie Physicians Team ED Provider: Shahid Cardona ED Midlevel Provider: Lorena Moya Primary Care Provider: Deyanira Rhodes Attending Provider: Eyal Marie Other Providers: Elena Ramsey ; Addy Mae Rxs /Orders / Referrals /Forms Prescriptions: New metoprolol tartrate 50 mg tablet 50 mg PO BID Qty: 60 RF: 0 clopidogrel [Plavix] 75 mg Tablet 75 mg PO DAILY Qty: 30 RF: 0 amlodipine [Norvasc] 5 mg Tablet 10 mg PO DAILY Qty: 30 RF: 0 Continue metformin 500 mg Tablet 500 mg PO BID RF: 0 Discontinued metoprolol tartrate 25 mg Tablet 25 mg PO BID RF: 0 Referrals: Primary Care Deyanira Fritz [Primary Care Provider] - See Instructions Discharge Instructions Patient Printed Instructions: Metoprolol (By mouth), Amlodipine (By mouth), Clopidogrel (By mouth), Carotid Endarterectomy (DC) Status ED Status: Left Department Discharge Information Discharge Date/Time: 07/05/18 14:35
== END 2018-07-05 14:35 | disposition home or self-care (01) | DRG 37 ==
LOC: NEPD 14:34 → NEDA 19:53 → N05 22:53 → N03 07-03 16:43 → N05 07-04 15:19
PROVIDERS: ADMIT Family Medicine; ATTEND Family Medicine
CPT/HCPCS: 70450; 70544; 70548; 70553; 71010; 71045; 80048; 80053; 80061; 82550; 82948; 82962; 83036; 83735; 84132; 84439; 84443; 84484; 85025; 85027; 85610; 85730; 86850; 86900; 86901; 88304; 88311; 90774; 90784; 93005; 93306; 96374; 97162; 99285; A9585; C8952; J0360; J0690; J1644; J1650; J2250; J2270; J2405; J2720; J3010